=== PATIENT | female | born 1960 | race Caucasian/White ===

== ENCOUNTER → 2016-09-22 | Outpatient (CLI) | payer BC, OTHER ==
--- NOTE | 2016-09-22 16:17 | RADRPT ---
PROCEDURE: XR Pelvis 1 View and Hip 1 Views. CLINICAL INDICATION: Right hip pain TECHNIQUE: AP pelvis and frog lateral view of the right hip were performed. COMPARISON: September 12, 2015 FINDINGS: The osseous structures are intact. No destructive bony lesions are observed. Severe narrowing of t he right hip joint is identified. Sclerosis is noted on both sides of the joint. Mild osteophytosi s is seen along the margins of the right acetabulum and femoral head. Moderate narrowing of the lef t hip joint is seen. Degenerative changes are seen in the lower lumbar spine. Multiple phleboliths are identified in the pelvis. IMPRESSION: Severe osteoarthritis of the right hip. Moderate osteoarthritis of the left hip. Degenerative changes in the lower lumbar spine. Overall appearance is similar to prior exam. If further characterization is needed CT or MRI could be helpful. RPTAT: AA .Raz Mistry MD, MD Date Time Electronically viewed and signed by .Raz Mistry MD, on 09/22/2016 16:17 .P/
--- NOTE | 2016-09-23 06:50 | HKNOTE ---
DATE OF SERVICE: 09/22/2016 MAIN COMPLAINT: Pain in the right hip. HISTORY OF MAIN COMPLAINT: The patient is a 55-year-old female who complains of pain in her right g roin. She has been seeing me for this problem for the last 2 years. The patient is a very active p erson. She has run at least 9 [place] marathons. 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 When she first presented with her right hip pain, she was diagnosed as having advanced degenerative osteoarthritis of the right hip. We were able to nurse her along with an occasional cortisone injec tion into the hip joint. The last injection was given on 09/21/2016. She did not get very much rel ief from that injection. Her pain has become very much worse in the past few weeks, and she would n ow like to proceed with a hip replacement operation. She comes in with her fiance. The patient was taking Advil for the pain. She now takes Aleve which she believes helps a great solomon l. She takes as needed. PRESENT COMPLAINTS: The patient's pain is localized to the right groin and radiates down the anteri or aspect of the right thigh as far as the knee joint. Secondarily, she gets pain in the area of th e both buttocks which radiates down to the ankles. She also gets some numbness and tingling in that same distribution. She does get pain in her lower back. She never had an MRI scan of her lumbar s pine. Her pain is somewhat relieved by massage. She limps some of the time. She does not have a shoe lif t. Her leg lengths feel equal. She can clip her toenails and tie her shoelaces. SPORTING ACTIVITIES: Used to do walking and hiking but can no longer do so. PAST ORTHOPEDIC HISTORY: PREVIOUS ORTHOPEDIC OPERATIONS: In 1983, bunion surgery by doctor at the ____ [facility]. PRIOR CORTISONE INTAKE: As above. ALCOHOL INTAKE: One to two glasses of wine daily with dinner. OTHER JOINT PROBLEMS: The patient states that she "gets pain all over my body from compensating for my right hip." When questioned about this in more detail, it turns out that she gets what seem to be muscle pains rather than joint pains. BLOOD TESTS FOR ARTHRITIS: Recently performed and completely normal. PRIOR INJURIES TO HIPS OR KNEES: None. 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 PAST MEDICAL HISTORY: Essentially negative. The patient had asthma, but that seems to have spontan eously cleared up. ALLERGIES: FLAGYL. MEDICATIONS: 1. Lorazepam 1 to 2 a month for anxiety. 2. Aleve as needed for pain. PREVIOUS MAJOR INJURIES: None. FAMILY HISTORY: The patient is adopted. SYSTEMS REVIEW: Gait disturbance and three pregnancies. Otherwise negative. HABITS: The patient smoked in her 20s and 30s. The patient no longer smokes. She drinks 1 to 2 gl asses of wine a day. PHYSICAL EXAMINATION GENERAL: The patient is a remarkably fit-looking and youthful 55-year-old female. VITAL SIGNS: Height 5 feet 3 inches, weight 147 pounds. GAIT: The patient walks without a walking aid. Her gait is markedly antalgic. She is not using a walking aid. RIGHT HIP: Flexion 100, external rotation 25, internal rotation 0, abduction 30, adduction 0. The patient gets marked pain in the right groin at the limits of motion. No tenderness anywhere around the right hip. LEFT HIP: A full range of motion without pain. LEFT KNEE: LEFT KNEE: The left knee shows normal alignment. Active and passive extension is 0 degr ees. Active and passive flexion is 135 degrees. The medial and lateral collateral ligaments and cruc iate ligaments are intact. Kelsie test is negative. There is no effusion, tenderness, scarring, cre pitus, or cysts. The patella tracks normally. There is no tenderness on the articular surface of the patella or in the patellar groove. The Q angle is normal. RIGHT KNEE: RIGHT KNEE: The right knee shows normal alignment. Active and passive extension is 0 d egrees. Active and passive flexion is 135 degrees. The medial and lateral collateral ligaments and c ruciate ligaments are intact. Kelsie test is negative. There is no effusion, tenderness, scarring, crepitus, or cysts. The patella tracks normally. There is no tenderness on the articular surface of the patella or in the patellar groove. The Q angle is normal. NEUROLOGIC: Motor examination reveals no muscle deficit in the lower extremities. Deep tendon refle xes in the lower extremities: Right knee jerk plus, left knee jerk plus, right ankle jerk plus, lef t ankle jerk plus. Straight leg raising is negative bilaterally at 80 degrees. Lasegue and JUNE lisa ts are negative. IMAGING: Plain x-rays of her pelvis and right hip obtained [facility] were reviewed. These showed almost complete loss of the articular cartilage. Bone quality is go od. Leg lengths appear to be equal. DIAGNOSES: 1. Severe symptomatic degenerative osteoarthritis of the right hip. 2. Resolved asthma. 3. "Nose job." 4. Breast reduction. 5. History of section. MANAGEMENT: The patient comes in today to discuss total hip replacement. She clearly has reached a point at which she would like to proceed with the surgery having tried every possible way to put it off. An extensive amount of time was spent with her and her fiance discussing hip replacement surgery and what is involved in the operation. They were shown actual implants. The patient was given my manual titled "Arthritis of the Hip Joint" which contains information karlee rning the various alternatives of treatment. It includes various forms of conservative treatment, in cluding the use of nonsteroidal anti-inflammatory medications and their dangers. Various surgical al ternatives are discussed. The technique of total hip replacement is discussed in detail, including p ossible complications. Included also is a section on the possible complications of blood transfusion , a section on postoperative precautions, and an exercise program to follow at home after total hip replacement. The long-term care of a total hip replacement implant is also covered in detail. The sol ortiz was instructed to read this manual in its entirety since it is, in and of itself, a form of in formed consent. After reading this manual, the patient will make a list of further questions that ma y not have been covered adequately. The patient was further advised that this manual, although exhau stive in nature, is only intended to supplement and complement a one-on-one discussion with me. The operation of anterior hip replacement was discussed with them in a fair amount of detail. The patient was referred to my website, [facility]. At her request, she was given a prescription for physical therapy to strengthen up her lower extremi ty muscles. The patient is being referred for an MRI scan of her lumbar spine. She will be called with the resu . She has already scheduled surgery with my personnel assistant, Ronaldo. Said surgery will be performed o n 09/29/2016, subject to change if needed. At the patient's request, she was given a prescription to have some toning up exercises for lower ex tremities prior to undergoing surgery. Note that she is going to get a second opinion from Dr. Jorge Goodwin. Dictated By: CASSIE MERRILL/GALE Conf#: [id number] DID#: [id number]
== END | disposition home or self-care (01) ==
LOC: HKI 16:23
DX: M25.551 Pain in right hip (principal); M16.11 Unilateral primary osteoarthritis, right hip
CPT/HCPCS: 73502; G0463

== ENCOUNTER → 2016-10-29 | Outpatient (CLI) | payer BC, OTHER ==
[~2016-10-29] MED LIST: FLEX PO; TRAM-40 PO
--- NOTE | 2016-10-30 06:45 | HKNOTE ---
DATE OF SERVICE: 10/29/2016 evaluation. She is scheduled to have a right total hip replacement on 10/30/2016. She has been cleared for surgery by Dr. Hao Chicas. She has not given blood for transfusion. She understands the risks associated with using hospital blood. She is agreeable to using hospital blood if needed. Numerous questions were asked and answered. Dictated By: CASSIE MERRILL/GALE Conf#: [id number] DID#: [id number]
== END | disposition home or self-care (01) ==
LOC: HKI 13:25
DX: M25.551 Pain in right hip (principal); M16.11 Unilateral primary osteoarthritis, right hip
CPT/HCPCS: G0463

== ENCOUNTER 2016-10-30 05:40 | Inpatient (IN) | payer OTHER ==
[2016-10-29 09:30] VITALS: BMI 25.4
--- NOTE | 2016-10-29 16:05 | PREOPHP ---
DATE OF ADMISSION: 10/30/2016 CHIEF COMPLAINT: Admitted to undergo a right total hip replacement. HISTORY OF PRESENT ILLNESS: Rosi Koo is a 55-year-old woman who has been in excellent health. She has a long-standing history of running. She has run marathons for years, but has been having progressive discomfort as well as osteoarthritis in the right hip. She used to run 40 miles every w sun'aq, she now really has a hard time walking without significant pain. She has been evaluated by Dr. Mcgarry and has elected to proceed with a right total hip replacement. The patient states that she has been in good health, denying any recent illnesses or infections. MEDICATIONS: Tramadol 50 mg, 1 to 2 tablets per day. HABITS: The patient has a 5 pack-year smoking history, but quit smoking 2 1/2 years ago. Alcohol u se is 1 to 2 glasses of wine per day. I have advised her to stop in the week prior to surgery. ALLERGIES: NO KNOWN ALLERGIES TO ANY MEDICATIONS. PAST MEDICAL HISTORY: She underwent a tonsillectomy in 1979, a nose job in 1987, section in 1992, a breast reduction in 1995. She was seen at the [facility] for a panic evangelist ck in 2010, which has not recurred. A recent cardiac workup, including stress echocardiography was negative. A bone density was excellent. SOCIAL HISTORY: The patient is adopted. She was born in [place]. 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 She has been for 15 years, but is in a long-term relationship at this [facility]. She has a 23-year-old son with a history of asthma. REVIEW OF SYSTEMS: HEENT: She has no new trouble with her vision or hearing. No otic discomfort or pharyngitis report ed. PULMONARY: She denies cough, dyspnea, sputum production or ____ pneumonia. She was diagnosed with asthma in her 20s, but the symptoms have not recurred. CARDIOVASCULAR: She denies chest discomfort, exertional angina, heart palpitations or prior history of myocardial infarction. GASTROINTESTINAL: She denies nausea, vomiting, constipation, diarrhea or rectal bleeding. GENITOURINARY: She denies dysuria, polyuria, polydipsia, or nocturia. GYNECOLOGIC: She has occasional spotting between menstrual periods, as well as small fibroids. NEUROLOGIC: She denies a history of stroke or transient ischemic attack. No focal paresthesias __ __ numbness or weakness. ORTHOPEDICS: See history of present illness. PHYSICAL EXAMINATION: GENERAL: The patient is alert, oriented and in no distress. VITAL SIGNS: Height 5 feet 3 inches, weight 147 pounds, blood pressure 120/80, pulse 74, temperatu re ____. HEENT: Head is normocephalic and atraumatic. Eyes: The pupils were equal, round and reactive to l ight and accommodation. The sclerae were nonicteric. The fundi were benign. Extraocular movements were intact. Ears, tympanic membranes were clear bilaterally. Nose: Nares are clear. Throat: The pharynx is benign without oral lesions noted. Neck: The neck is supple. Carotid pulses are 2+ john aterally without bruits. The trachea is in the midline. There is no thyromegaly or lymphadenopathy . CHEST: The lungs are clear to auscultation and percussion. HEART: S1 and S2 had a regular rate and rhythm without murmurs or gallops auscultated. ABDOMEN: Shows good bowel sounds in all 4 quadrants. She had no evidence for hepatosplenomegaly. T here was no tenderness to abdominal palpation and femoral pulses were 2+ bilaterally. EXTREMITIES: Without cyanosis, clubbing or edema. NEUROLOGIC: Cranial nerves were intact. Deep tendon reflexes were physiologic and symmetric. Mot or and sensory were grossly intact. VASCULAR: Peripheral pulses were full and equal. LABORATORY DATA: Hemoglobin and hematocrit were 12.4 and 39.1 respectively. White blood count 5500 , platelet count 390,000. Sodium and potassium 137 and 4.3. She had normal liver and kidney functi on. Urinalysis was clear. INR is 0.9. PTT is 34.1 seconds. EKG was within normal limits. Chest radiograph was clear. ASSESSMENT: Rosi Koo is a 55-year-old woman who is now admitted to undergo a right total hip r eplacement. Based on the patient's history, physical and laboratory data, there is nothing to precl ude the performance of this performance at this time and she is medically cleared to proceed. Please do not hesitate to contact me if you have any questions. Dictated By: CASSIE MERRILL/GALE Conf#: [id number] [facility]#: [id number]
[~2016-10-30] VITALS: Ht 160 cm; Wt 66.7 kg
[2016-10-30] VITALS (17 sets, daily range): BP systolic 92–121; BP diastolic 60–78; PULSE 74–118; RESP 13–19; Ht 160 cm; Wt 66.7 kg
[2016-10-30] MEDS ORDERED: CELECOXIB 200 MG CAP PO ONE (06:00)
[2016-10-30] MEDS ORDERED: LANSOPRAZOLE 30 MG CAP PO ONE (06:00)
[2016-10-30] MEDS ORDERED: LACTATED RINGER'S 1,000 ML IV* SCH (06:00)
[2016-10-30] MEDS: HIP PAIN COCKTAIL VANCO INJ SCH ×14 (06:00→09:21)
[2016-10-30] MEDS ORDERED: VANCOMYCIN 1 GM (PMX) 250 ML IVPB ONE (06:00)
[2016-10-30] MEDS ORDERED: DEXAMETHASONE 4 MG/ML 1 ML INJ IV ONE (06:00)
[2016-10-30] MEDS ORDERED: ACETAMINOPHEN 1000MG/100ML IV 100 ML IVPB ONE (06:00)
[2016-10-30] MEDS ORDERED: oxyCODONE (CR) 10 MG TAB [oxyCONTIN] PO ONE (06:00)
[2016-10-30] MEDS ORDERED: ONDANSETRON 4 MG INJ IV ONE (06:00)
[2016-10-30] MEDS ORDERED: TRANEXAMIC ACID IVPB ONE (06:30)
[2016-10-30] MEDS ORDERED: SOD CHLORIDE 0.9% IVPB ONE (06:30)
[2016-10-30] MEDS ORDERED: TRAM-40 PO (06:35)
[2016-10-30] MEDS ORDERED: FLEX PO (06:35)
--- NOTE | 2016-10-30 06:47 | HPN ---
Date/Time of Note Date/Time of Note DATE: 10/30/16 TIME: 06:46 Interval H&P Admission Note Pt. seen H&P reviewed: No system changes ALKA HANKS PA-C Oct 30, 2016 06:47
[2016-10-30] MEDS ORDERED: HEPARIN 1000 UNITS/ML 10 ML INJ ONE (07:06)
[2016-10-30] MEDS ORDERED: GELATIN SIZE 100 SPONGE ONE (07:06)
[2016-10-30] MEDS ORDERED: POLYMYXIN B 500000 UNIT INJ ONE (07:06)
[2016-10-30] MEDS ORDERED: ROPIVACAINE 0.2% 100 ML ONE (07:06)
[2016-10-30] MEDS ORDERED: VANCOMYCIN 1 GM INJ ONE (07:06)
[2016-10-30] MEDS ORDERED: BACITRACIN 50000 UNITS INJ ONE (07:11)
[2016-10-30] MEDS ORDERED: BUPIVACAINE 0.5%/EPI (SDV) 30 ML INJ ONE (07:39)
[2016-10-30] MEDS ORDERED: TRANEXAMIC ACID 1300 MG IRR SCH ×2 (08:00)
[2016-10-30] MEDS ORDERED: SOD CHLORIDE 0.9% IRR SCH ×2 (08:00)
[2016-10-30] MEDS ORDERED: ROCURONIUM 50 MG INJ ONE ×2 (08:03→10:49)
[2016-10-30] MEDS ORDERED: SUCCINYLCHOLINE CHLORIDE 100 MG/5 ML SYG IV ONE (08:03)
[2016-10-30] MEDS ORDERED: NEOSTIGMINE 3 MG/3 ML SYRINGE ONE (08:03)
[2016-10-30] MEDS ORDERED: PROPOFOL 20 ML ONE (08:03)
[2016-10-30] MEDS ORDERED: GLYCOPYRROLATE 0.4 MG INJ ONE ×2 (08:04→10:47)
[2016-10-30] MEDS ORDERED: LIDOCAINE 2% (SDV) 5 ML INJ ONE (08:04)
[2016-10-30] MEDS ORDERED: ROPIVACAINE 0.2% 100ML BAG INJ ONE (09:21)
[2016-10-30] MEDS ORDERED: METOCLOPRAMIDE 10 MG INJ ONE (10:49)
[2016-10-30] MEDS ORDERED: ONDANSETRON 4 MG INJ ONE (10:49)
[2016-10-30] MEDS: DEXTROSE 5%-LR 1,000 ML IV SCH ×2 (11:36→19:37)
--- NOTE | 2016-10-30 11:45 | PDOCDIS ---
Discharge Instructions DIAGNOSIS Discharge Diagnosis: Status Post right total hip arthroplasty via anterior route CONDITION Patient Condition: Stable HOME CARE INSTRUCTIONS: Diet Instructions: Regular ACTIVITY: Activity Restrictions: Slowly Increase Activity Rest between Activity Avoid heavy lifting No Sexual Activity Do not Drive Do not operate Machinery Do not operate Power Tool Avoid Heavy Housework Keep Limb Elevated (While at rest. Ice modalities encouraged.) Weight Bearing (As tolerated with front wheeled walker. May gradually progress to independent ambulation when confident and feels that hip is stable.) Bathing Restrictions: Shower (Using Tegaderm with pad. Apply prior to shower. Dab dry and remove after shower. Do not leave on throughout the day as this may create potential skin irritation. Repeat steps each day until ashley are removed around 10 days postoperatively.) FOLLOW UP/APPOINTMENTS Appointments Follow-up on 11/19/2016 at 2:15 PM. ALKA HANKS PA-C Oct 30, 2016 11:45
[2016-10-30] MEDS ORDERED: NA PHOSPHATE/BIPHOS 133 ML ENEMA PR PRN (12:00)
[2016-10-30] MEDS: ACETAMINOPHEN 1000MG/100ML IV 100 ML IVPB SCH ×2 (12:00→19:36)
[2016-10-30] MEDS ORDERED: MAGNESIUM HYDROXIDE 30ML CUP PO PRN (12:00)
[2016-10-30] MEDS ORDERED: MEPERIDINE 10 MG/ML 30 ML PCA IV PRN (12:00)
[2016-10-30] MEDS ORDERED: oxyCODONE 5 MG TAB PO PRN (12:00)
[2016-10-30] MEDS ORDERED: NACL 0.9% 3 ML SYG IV SCH (12:00)
[2016-10-30] MEDS ORDERED: BISACODYL 10 MG SUPP PR PRN (12:00)
[2016-10-30] MEDS ORDERED: BETHANECHOL 25 MG TAB PO PRN (12:00)
[2016-10-30] MEDS ORDERED: NALOXONE (0.4 MG/ML) INJ IV PRN (12:00)
[2016-10-30] MEDS ORDERED: DIPHENHYDRAMINE 50 MG INJ IM PRN (12:00)
[2016-10-30] MEDS ORDERED: DOCUSATE SODIUM 100 MG CAP PO ONE ×2 (12:00→12:04)
[2016-10-30] MEDS ORDERED: HYDROmorphONE 0.2 MG/ML PCA IV PRN (12:00)
[2016-10-30] MEDS ORDERED: ASPIRIN (EC) 325 MG TAB PO ONE (12:00)
[2016-10-30] MEDS ORDERED: SENNA/DOCUSATE NA (8.6MG/50MG) TAB PO PRN (12:00)
[2016-10-30] MEDS ORDERED: CEFAZOLIN 1 GM/50 ML (PMX) 50 ML IVPB ONE (12:03)
[2016-10-30] MEDS: CEFAZOLIN 1 GM/50 ML (PMX) 50 ML IVPB SCH ×2 (12:09→20:21)
[2016-10-30] MEDS: ONDANSETRON 4 MG INJ IV SCH ×2 (12:09→17:54)
[2016-10-30] MEDS ORDERED: MIDAZOLAM 1 MG/ML 2 ML INJ IV PRN (13:00)
[2016-10-30] MEDS ORDERED: DIPHENHYDRAMINE 50 MG INJ IV PRN (13:00)
[2016-10-30] MEDS ORDERED: EPHEDrine SULFATE 50 MG/5 ML SYG IV PRN (13:00)
[2016-10-30] MEDS ORDERED: hydrALAzine 20 MG INJ IV PRN (13:00)
[2016-10-30] MEDS ORDERED: ONDANSETRON 4 MG INJ IV PRN (13:00)
[2016-10-30] MEDS ORDERED: LABETALOL HCL 20MG INJ IV PRN (13:00)
[2016-10-30] MEDS ORDERED: HYDROmorphONE (0.2 MG/ML) 10ML SYG IV PRN ×2 (13:00)
[2016-10-30] MEDS ORDERED: METOCLOPRAMIDE 10 MG INJ IV PRN (13:00)
[2016-10-30] MEDS ORDERED: MEPERIDINE 25 MG INJ IV PRN (13:00)
--- NOTE | 2016-10-30 13:13 | RADRPT ---
PROCEDURE: XR hip CLINICAL INDICATION: Postop TECHNIQUE: AP views of the right hip are available for review. COMPARISON: None available FINDINGS: A non cemented right hip hemiarthroplasty is present in near anatomic alignment without acute radiog raphic abnormality. Recent surgical changes seen in the soft tissues. IMPRESSION: 1. Right hip hemiarthroplasty in near anatomic alignment without acute radiographic abnormality RPTAT: EE .Rich Gross MD, MD Date Time Electronically viewed and signed by .Rich Gross MD, MD on 10/30/2016 13:13 .d/
--- NOTE | 2016-10-30 13:14 | RADRPT ---
PROCEDURE: X-ray fluoroscopy guidance CLINICAL INDICATION: Right hip hemiarthroplasty TECHNIQUE: Fluoroscopic guidance was utilized for an intraoperative procedure. COMPARISON: None available FINDINGS: Fluoroscopic guidance was utilized for a noncemented right hip hemiarthroplasty placement. 0.6 octavio lisa of fluoroscopy time was utilized for the procedure. Alignment appears near anatomic. 17 fluoros copic spot images were obtained. IMPRESSION: 1. X-ray fluoroscopic guidance utilized for right hip hemiarthroplasty placement. RPTAT: EE .Rich Gross MD, MD Date Time Electronically viewed and signed by .Rich Gross MD, MD on 10/30/2016 13:14 .d/
[2016-10-30] MEDS ORDERED: BUPIVACAINE 0.25% (MPF) 30 ML INJ INJ ONE (13:55)
[2016-10-30] MEDS ORDERED: TRANEXAMIC ACID 670 MG in SOD CHLORIDE 0.9% 100 ML IVPB ONE ×2 (15:00→18:00)
[2016-10-30] MEDS: oxyCODONE 5 MG TAB PO PRN ×2 (15:29→18:53)
--- NOTE | 2016-10-30 17:03 | OPR ---
DATE OF OPERATION: 10/30/2016 PREOPERATIVE DIAGNOSIS: Severe degenerative osteoarthritis of the right hip. POSTOPERATIVE DIAGNOSIS: Severe degenerative osteoarthritis of the right hip. PROCEDURE: Right total hip replacement. SURGEON: Jesse Mcgarry MD MANAGER CARDIAC CATH: Hammad Verdin ANESTHESIOLOGIST: Yazan Monroy MD FINDINGS AT SURGERY: The patient was found to have exceedingly severe osteoarthritis of the right hip. The femoral head had no normal-appearing articular cartilage. The patient's bone quality was incredibly good for a female of her age. The acetabular bone in particular was very hard, as was the femoral bone. JUSTIFICATION FOR SURGERY: The patient has endstage osteoarthritis of the right hip. There can be no scientific expectation that any further conservative measures would give this patient any relief from her incapacitating pain. DESCRIPTION OF PROCEDURE: The patient was given intravenous antibiotics approximately 1 hour prior to surgery. An epidural anesthetic was initiated in the preanesthesia area. The patient was then moved to the operating room and transferred to a [place] table. General anesthesia was induced with intubation and full muscle paralysis. Plain and digital x-rays were obtained of the pelvis and the operative hip and stored in the computer. Measurements were made on the operative hip to determine the degree of leg length and offset. The intent was to use the operative hip as the basic template for restoring the geometry of the operative hip (i.e., the opposite hip was not used as the template). On the pelvic x-ray, the correct orientation of the pelvis for surgery was determined. Note that the [employer] computer was used throughout for making all leg length and angular measurements. The operative thigh, leg and lower abdomen were prepared and draped in the usual sterile fashion. An oblique incision was made over the lateral aspect of the right thigh. Incision commenced 3 cm distal and 3 cm posterior to the anterior superior iliac spine. The total length of the incision was approximately 100 mm. The incision was deepened through the subcutaneous fat to expose the fascia over the tensor muscle. The fascia was opened to expose the muscle. Bleeding points were cauterized throughout by diathermic coagulation. The fascia over the tensor was incised by blunt and digital resection. The interval was found between the tensor muscle and the anterior capsule as well as the rectus muscle. Superior and inferior cobra retractors were now placed outside the capsule to expose the anterior surface of the capsule. A third cobra retractor was placed over the brim of the pelvis. The reflected head of rectus was first elevated with a Benson elevator. The anterior capsule was incised along the length of the intratrochanteric line with the hip externally rotated. The incision extended around the proximal femur to the lesser trochanter. The incision was now extended vertically to the edge of the acetabulum. The capsular incision was extended along the anteromedial extent of the anterior rim of the acetabulum. A cobra retractor was placed inside the capsule medially. The lateral aspect of the anterior capsule was incised and a second cobra retractor was placed inside the capsule around the superior femoral neck. Three turns of traction were placed on the operative leg. The femoral head was now freed from the acetabulum using a skid. The remaining superior and anterior capsule was incised and the femoral neck was then incised. A corkscrew was inserted into the femoral head from the anterior aspect of the femoral head. Using the corkscrew as a handle and using a skid, the hip was now completely dislocated. The hip was reduced. An osteotomy of the femoral neck was made at the location determined by preoperative templating. The femoral head was now removed. By suitable retraction, the acetabulum was exposed. Soft tissues around the folia removed. The acetabulum was enlarged and deepened to 51 mm. The last acetabular reamers were inserted under fluoroscopic control and the correct orientation of the socket and if the reaming were determined by the [employer] computer and direct x-ray visualization. The acetabular component was now installed with an orientation of 43 degrees of abduction and 24 degrees of anteversion. The [employer] computer was used for making these measurements. The proximal femur was now exposed by hyperextending and adducting the hip joint. A retractor was placed posterior to the femoral neck so as to retract the proximal femur laterally. A hook was then placed around the proximal femur deep to the tensor muscle and as proximal as possible. The hook was attached to the table stacy and the femur was elevated as high as we could go without force being applied to the femur. The superior and proximal femoral capsules were now incised. The cobra retractor was placed behind the posterior rim of the acetabulum. A Steinmann pin was driven into the pelvis superior to the acetabulum to retract the soft tissues. A third cobra was placed over the rim of the acetabulum and the fourth cobra was placed along the medial aspect of the acetabulum. This allowed further mobilization of the proximal femur. A canal finder was used to find the canal. The proximal femur is now broached starting with the smallest broach and progressively increasing until we felt we could go no further. At this point, the size 7 broach was left in place and the hip was reduced. X- rays were taken and these x-rays showed that we could broach up 1 more size. The hip was reduced with the shortest femoral head and neck assembly and measurements were made to determine what neck lengths and offset changes were still needed. The hip was dislocated. The next size broach (size 8) was now installed. This broach was found to be completely stable. The hip was reduced using the -2 mm femoral head and neck assembly and the size 8 broach. Measurements indicated that the leg length was0.5 mm shorter than the opposite hip and the offset was medialized. The intention then was to use a plus 2 neck for the final implant which would increase offset and minimally increase leg length. With these trial components in place the foot was now detached from the [place] table and the hip was put through a full functional range of motion. The hip was found to be completely stable to the limits of motion with a 10-degree lip set anteriorly on the trial socket liner. The Tessie test appeared to be normal. The trial components were removed, the permanent plastic acetabular component was installed. This was followed by installing the permanent femoral component. The table was now returned to a neutral position and the final exays taken using the plus 2mm trial neck. This showed that the leg had been increased more than expected.. The femoral head was exchanged for a minus 2 mm head/neck and repeat measurements showed an increase in length of 3.8 mm and medialized 3mm. This big disparity between the last two measurements were discussed with the computer numerical control grinder. She was dumbfounded as to how the difference had come about.A decision had to be made whether the lengthening was acceptable or to extract the femoral component and shorten the femur. It was felt that since the leg was short properatively by 2 mm that would leave a 1.8 mm lengthening total which should be acceptable, and that removing the femoral component would be difficult at best. The wound was frequently irrigated throughout the procedure with normal saline containing antibiotics using pulsatile lavage. Superficial and deep Hemovac drains were placed. Soft tissues around the hip were injected with a mixture of Naropin, Toradol, morphine and clonidine for pain management. The deep tissues were now closed using interrupted Vicryl. The subcutaneous tissues were closed using a Quill type stitch. The skin was closed using ashley. The usual sterile dressings were applied and an abduction pillow was placed between the patient's legs before transferring her to a gurney. The patient returned to the recovery room in stable condition. There were no other problems throughout this operation as far as is known. Although multiple x- rays were taken in the operating room and saved, the permanent x-ray record was obtained in the recovery room to be sure that the hip did not dislocate in transfer. IMPLANT COMPONENT INFORMATION: Femoral component: 15 size KA . Acetabular component: 52 mm Raymond with Gription. Femoral head size: 36 mm. Femoral neck size: -2 mm. Implant community health advocate: [email or web address] of [place], [place]. Leg length: Increased 3.8 mm as measured by the [employer] computer and offfset medialized 3.0 mm. It was felt (from experience) that decreasing the offset compensates for increased leg length and vice versa. Total blood loss was 200 mL and 125 mL was reinfused. Dictated By: JESSE MERRILL/GALE Conf#: [id number] DID#: [id number]
--- NOTE | 2016-10-30 18:48 | CONS ---
Date/Time of Note Date/Time of Note DATE: 10/30/16 TIME: 18:38 Assessment/Plan Assessment/Plan Problems: (1) Aftercare following right hip joint replacement surgery Status: Acute Comment: Pt. w/o other medical problems, o/w healthy. Doing well, POD#0. Encourage PT. Defer pain management to primary team. Will monitor for any medical issues and treat should they arise. Consultation Date/Type/Reason Admit Date/Time Oct 30, 2016 at 05:40 Date of Consultation: Oct 30, 2016 Type of Consultation: Medicine Reason for Consultation Medical Management Referring Provider: CASSIE COY MD Hx of Present Illness 55 y/o C F w/ a remote PMH of asthma and o/w healthy in [facility] [place] until 14 y. ago when she began to develop B hip and knee pains. Decided to stop running for exercise and substituted w/ walking and hiking. Pain initially improved but subsequently returned and began to worsen over time, occurring more frequently. First saw Dr. Coy 3 years ago and started getting annual cortisone shots in hip. Early this year pain in R groin significantly worsened and pt. became debilitated. Ortho decided to take her for full R CRISTOBAL which pt. had today, POD#0. Constitutional: improved, no complaints Eyes: no complaints ENT: other (laryngitis post-op) Respiratory: no complaints Cardiovascular: no complaints Gastrointestinal: no complaints Genitourinary: no complaints Musculoskeletal: bone/joint pain (R calf) Neurologic: other (numbness R lateral thigh) Past Medical History Medical History: other (asthma) Past Surgical History Past Surgical Hx: other (tonsillectomy in 1979, a nose job in 1987, section in 1992, a breast reduction in 1995) Family History Significant Family History: asthma (son), other (adopted) Social History b. [employer], 2 y. 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 ago, previously social smoker) Drug Use: marijuana (medicinal only) Exam/Review of Systems Vital Signs Vitals VS - Last 72 Hours, by Label Date Time Temp Pulse Resp B/P Pulse Ox O2 Delivery O2 Flow Rate FiO2 10/30/16 15:50 97.9 84 18 104/61 99 Room Air 10/30/16 14:50 97.9 82 18 100/67 99 Room Air 10/30/16 14:20 97.9 92 18 111/69 99 Room Air 10/30/16 13:50 97.9 87 18 106/63 99 Room Air 10/30/16 13:35 97.9 89 18 107/65 97 Room Air 10/30/16 13:20 97.9 83 18 109/69 99 Room Air 10/30/16 13:05 97.9 78 18 112/66 99 Room Air 10/30/16 12:11 74 18 100/67 100 Room Air 10/30/16 12:06 76 19 95/68 99 Room Air 10/30/16 12:01 80 19 99/72 100 Room Air 10/30/16 11:56 86 13 94/65 98 Room Air 10/30/16 11:51 98 15 102/71 99 Room Air 10/30/16 11:46 114 19 104/73 100 Room Air 10/30/16 11:41 118 17 100/69 99 Room Air 10/30/16 11:36 98.5 113 18 92/67 100 Room Air 10/30/16 06:33 98.7 74 18 121/78 100 Room Air Vital Signs Date Time Temp Pulse Resp B/P Pulse Ox O2 Delivery O2 Flow Rate FiO2 10/30/16 15:50 97.9 84 18 104/61 99 Room Air Exam Constitutional: alert, oriented, well developed Psych: nl mood/affect, no complaints Eyes: EOMI, PERRL, nl conjunctiva, nl lids, nl sclera ENMT: mucosa pink and moist, nl external ears & nose Neck: non-tender, supple, No bruits, No masses, No thyromegaly Respiratory: clear to auscultation, normal air movement Cardiovascular: nl pulses, regular rate and rhythm, No edema, No murmurs/extra sounds, No rub Gastrointestinal: bowel sounds, nl liver, spleen, non-tender, soft, No mass, No rebound or guarding Musculoskeletal: nl extremities to inspection Extremities: normal pulses, No clubbing, No cyanosis, No edema Neurological: BAGGAGE AGENT SUPERVISOR II-XII intact, nl mental status, nl speech, nl strength Medications Medications Current Medications Dextrose/Lactated Ringer's (D5-Lr) 1,000 ml @ 80 mls/hr [id number] IV Last administered on 10/30/16 11:36; Admin Dose 80 MLS/HR; Start 10/30/16 at 11:36 Hydromorphone HCl (Dilaudid SLICER MACHINE OPERATOR) Q4PCA PRN IV SEVERE PAIN 8-10; Start 10/30/16 at 12:00; Stop 10/31/16 at 09:00 Meperidine HCl (Demerol SLICER MACHINE OPERATOR) Q4PCA PRN IV SEVERE PAIN 8-10; Start 10/30/16 at 12:00; Stop 10/31/16 at 09:00 Oxycodone HCl (Roxicodone) 20 mg Q3H PRN PO PAIN LEVEL 8-10; Start 10/30/16 at 12:00 Oxycodone HCl 10 mg 10 mg Q3H PRN PO PAIN LEVEL 4-7 Last administered on 15:29; Admin Dose 10 MG; Start 10/30/16 at 12:00 Acetaminophen (Ofirmev 1000mg/ 100ml Iv) 100 ml @ 400 mls/hr Q8H IVPB ; Start 10/30/16 at 12:00; Stop 11/01/16 at 04:14 Zolpidem Tartrate (Ambien) 5 mg HS PRN PO INSOMNIA; Start 10/30/16 at 12:00 Ondansetron HCl 4 mg 4 mg Q6H IV Last administered on 10/30/16 12:09; Admin Dose 4 MG; Start 10/30/16 at 12:00; Stop 10/31/16 at 06:01 Cefazolin Sodium (Ancef 1 Gm/50 ml (Pmx)) 50 ml @ 100 mls/hr Q8H IVPB Last administered on 10/30/16 12:09; Admin Dose 100 MLS/HR; Start 10/30/16 at 12:00; Stop 10/31/16 at 04:29 Aspirin (Ecotrin) 325 mg BID PO ; Start 10/31/16 at 09:00 Celecoxib (Celebrex) 200 mg BID PO ; Start 10/31/16 at 09:00 Dexamethasone (Decadron) 4 mg DAILY@07 IV ; Start 10/31/16 at 07:00; Stop at 06:59 Pantoprazole (Protonix Tab) 40 mg DAILY@06 PO ; Start 10/31/16 at 06:00 Docusate Sodium/ Ferrous Fumarate (Melinda-Sequels) 1 tab BID PO ; Start 10/31/16 at 09:00 Docusate Sodium (Colace) 200 mg BID PO ; Start 10/31/16 at 09:00; Stop 11/02/16 at 21:01 Simethicone (Mylicon) 80 mg TID PRN PO DISTENSION/GAS/BLOATING; Start 10/30/16 at 12:00 Senna/Docusate Sodium (Senokot-S) 2 tab BID PRN PO CONSTIPATION; Start 10/30/16 at 12:00 Magnesium Hydroxide (Milk Of Mag) 30 ml HS PRN PO CONSTIPATION; Start 10/30/16 at 12:00 Bisacodyl (Dulcolax Supp) 10 mg DAILY PRN SC CONSTIPATION; Start 10/30/16 at 12: 00 Sodium Biphosphate/ Sodium Phosphate (Fleet Enema) 133 ml DAILY PRN SC CONSTIPATION; Start 10/30/16 at 12:00 Diphenhydramine HCl (Benadryl) 25 mg Q4H PRN IM ITCHING OR RASH; Start 10/30/16 at 12:00 Ketorolac Tromethamine (Toradol) 15 mg DAILY@06 PRN INJ ADMINSTER BY SURGEON ONLY; Start 10/31/16 at 06:00; Stop 11/04/16 at 05:59 Bupivacaine HCl/ Epinephrine Bitart (Marcaine 0.25%/ Epi (Sdv) 30 ml) 20 ml DAILY@06 PRN INJ ADMINSTER BY SURGEON ONLY; Start 10/31/16 at 06:00; Stop at 05:59 Naloxone HCl (Narcan) 0.2 mg Q2M PRN IV DECREASED REPIRATORY RATE; Start at 12:00 JEM MCCARTNEY MD Oct 30, 2016 18:48
[2016-10-30] MEDS: ZOLPIDEM 5 MG TAB PO PRN (21:56)
[2016-10-31 01:11] VITALS: BP 95/65; PULSE 68; RESP 18
[2016-10-31] MEDS: CEFAZOLIN 1 GM/50 ML (PMX) 50 ML IVPB SCH (03:56)
[2016-10-31] MEDS: ACETAMINOPHEN 1000MG/100ML IV 100 ML IVPB SCH ×2 (04:26→11:53)
[2016-10-31] MEDS ORDERED: BUPIVACAINE 0.25%/EPI (SDV) 30 ML INJ INJ PRN (06:00)
[2016-10-31] MEDS: ONDANSETRON 4 MG INJ IV SCH ×2 (06:00)
[2016-10-31] MEDS ORDERED: KETOROLAC 15 MG INJ INJ PRN (06:00)
[2016-10-31] MEDS: DEXAMETHASONE 4 MG/ML 1 ML INJ IV SCH (06:14)
[2016-10-31] MEDS: PANTOPRAZOLE (EC) 40 MG TAB PO SCH (06:14)
--- NOTE | 2016-10-31 07:25 | PN ---
Date/Time of Note Date/Time of Note DATE: 10/31/16 TIME: 07:22 Assessment/Plan VTE Prophylaxis VTE Prophylaxis Intervention: ambulation, SCD's, other (Aspirin 325 mg twice daily) Lines/Catheters IV Catheter Type (from Nrsg): Peripheral IV Guadalupe in Place (from Nrsg): Yes Assessment/Plan Assessment/Plan -Hemovac Removed Today -Pain Cocktail Given -Pain Meds as needed -Dress change performed today -OOB with PT -ASA/SCDs for DVT Prophylaxis -We will continue to monitor numbness to the anterior thigh. Likely due to retraction while performing surgery as numbness and nerve irritation is common due to increased pressure while performing procedure. Should dissipate over time we will continue to monitor. -We will continue to monitor feeling of abnormal limb length as well. -Continue monitoring with Internal Medicine -Patient Stable Subjective 24 Hr Interval Summary 55-year-old female postop day 1 status post right total hip arthroplasty via anterior route. Patient denies any pain to the hip. Patient does have complaints of numbness to the anterior thigh. Patient has been up and out of bed with physical therapy. She does feel that there is abnormal limb length as the operative side feels like it is "longer" than the other. We will continue to monitor this. No acute events overnight. No chest pain/tightness, calf pain. Patient is doing well and is very pleasant this morning. Pain Control: well controlled Exam/Review of Systems Vital Signs Vitals Vital Signs Date Time Temp Pulse Resp B/P Pulse Ox O2 Delivery O2 Flow Rate FiO2 10/31/16 01:11 98.2 68 18 95/65 97 Nasal Cannula 2.0 Intake and Output 10/30/16 10/30/16 10/31/16 15:00 23:00 07:00 Intake Total 1958 ml 1870 ml 1790 ml Output Total 860 ml 950 ml 1880 ml Balance 1098 ml 920 ml -90 ml Exam Free Text/Dictation -Hemovac: Intact. 200 cc output -Pain Cocktail Drains: Intact -Incision: Clean, Dry and Intact without any redness or drainage -Thigh soft -5/5 Quadriceps, Tibialis Anterior, EHL Gastrocnemius/Soleus and Peroneals -Numbness to the anterior thigh to light touch. -Palpable DP/PT, Capillary Refill <2 secs -No Distal Edema -Negative Arnoldo Sign/No calf pain -Toes Freely Movable Constitutional: alert, oriented, well developed ALKA HANKS PA-C Oct 31, 2016 07:25
[2016-10-31 08:00] VITALS: BP 113/65; RESP 18
[2016-10-31] MEDS: DOCUSATE SODIUM 100 MG CAP PO SCH ×2 (08:14→21:40)
[2016-10-31] MEDS: FERROUS FUMARATE (SR) TAB PO SCH ×2 (08:15→21:40)
[2016-10-31] MEDS: CELECOXIB 200 MG CAP PO SCH ×2 (08:15→21:40)
[2016-10-31] MEDS: oxyCODONE 5 MG TAB PO PRN ×4 (08:16→22:56)
[2016-10-31 08:38] LABS: ADD UMIC YES; URINE BILIRUBIN (Dip) NEGATIVE (NEGATIVE); URINE BLOOD (Dip) 2+ (NEGATIVE); URINE COLOR LT. YELLOW (YELLOW); URINE GLUCOSE (Dip) NEGATIVE (NEGATIVE); URINE KETONES (Dip) NEGATIVE (NEGATIVE); URINE LEUKOCYTE ESTERASE (Dip) NEGATIVE (NEGATIVE); URINE NITRITE (Dip) NEGATIVE (NEGATIVE); URINE TOTAL PROTEIN (Dip) NEGATIVE (NEGATIVE); URINE UROBILINOGEN (Dip) 0.2 E.U./dL (0.1-1.0)
[2016-10-31 08:52] LABS: BACTERIA,URINE FEW
[2016-10-31] MEDS ORDERED: ASPIRIN (EC) 325 MG TAB PO SCH (09:00)
[2016-10-31] MEDS: DEXTROSE 5%-LR 1,000 ML IV SCH ×2 (12:36→22:57)
[2016-10-31] MEDS ORDERED: VANCOMYCIN 1 GM (PMX) 250 ML IVPB SCH (16:00)
--- NOTE | 2016-10-31 16:20 | PN ---
DATE: 10/31/2016 POSTOP DAY #1. The patient complains that her right leg feels too long. The intraoperative events were discussed with her, which led to the leg being slightly long and she was told the options for correcting the problem or living with it. At surgery using the [employer] computer after all the trials had been installed and leg lengths and of fset measured, the process development technician running the [employer] computer informed us that the final leg length wou ld be 0.5 mm shorter than the starting length. The patient had been asked in my office whether or n ot the leg lengths are equal and she indicated that she was unable to tell because of the pain in th e hips and because of her limping. She was advised in the office that it appeared from the x-rays t hat the starting length of the right hip was 2 mm shorter than the opposite side and that we might l engthen the leg by 2 mm from the starting point in surgery, if I thought it was necessary for stabil ity or if the test indicated that the hip was somewhat loose. Accordingly, this gave us a sufficient amount of length to work with using the shortest and second s hortest femoral head-neck assembly in order to equalize the leg lengths. The shortest neck length was therefore selected after installing trials and making the final decisio n. Final x-rays were now taken and the process development technician remeasured and announced that the operative leg was n ow 3.8 mm longer than the starting position. Taking into account that we were prepared to lengthen the leg by 2 mm if necessary, it was felt that the additional 1.8 or approximately 2 mm lengthening would not make much difference to the patient' s function. The center of the hip joint was also noted by Radlink measurements to show that the offset had been medialized by 2 mm. I frequently will lengthen the leg by the same amount as the medialization in o rder to compensate one against the other. On examining her further while she is standing up, it is clear that the right leg is longer than th e left and unacceptable to her. The patient was advised that our options are as follows. 1. I have frequently had patients where there was a slight increase in the length and after a few w eeks or months, there was complete accommodation to that lengthening by an unconscious tilting of th e pelvis. 2. The patients frequently thought that the leg might be too long, even when all measurements indic ated that they were exactly the same in which case that would be an illusion, but that would soon di ssipate. The patient was advised that I do not believe that was the situation in her case. Knowing that we had problems with the final Radlink measurements in surgery, I feel that it is best to go back in and to exchange the femoral component and shorten the leg. The procedure was discussed with her and her son, Tucker, also with her father who is a grounds foreman (on the phone). She was advised that I expect a fairly quick operation, that there should be no downside to the gio l functionality of the hip implant components, and that there is very low likelihood of any complica tions. After discussing together, the patient is agreeable to proceeding with revision of the femoral compo nent. We have scheduled her for approximately 11 a.m. tomorrow (Wednesday). If possible, we will try to get the same anesthesiologist. She had minimal blood loss at surgery (200 mL), so blood is unlikely to be an issue. We will start intravenous vancomycin and continue for 2 days after the surgery as well. Dictated By: CASSIE MERRILL/GALE Conf#: [id number] DID#: [id number]
[2016-10-31] MEDS ORDERED: VANCOMYCIN IV PER PHARMACY XX SCH (16:30)
[2016-10-31] MEDS ORDERED: VANCOMYCIN 1.5 GM in SOD CHLORIDE 0.9% 250 ML IVPB SCH (17:30)
--- NOTE | 2016-10-31 19:04 | CONS ---
Date/Time of Note Date/Time of Note DATE: 10/31/16 TIME: 19:00 Assessment/Plan Assessment/Plan Problems: (1) Aftercare following right hip joint replacement surgery Status: Acute Comment: Clinically stable. PT, pain and surgical related issues per Dr. Coy. Consultation Date/Type/Reason Admit Date/Time Oct 30, 2016 at 05:40 Initial Consult Date 10/30/16 Type of Consultation: Medicine Reason for Consultation medical management of non surgical issues. Referring Provider: CASSIE COY MD 24 HR Interval Summary Free Text/Dictation POD # 1 States "operated leg is 1 inch shorter." Otherwise has no complaints and feels well. Exam/Review of Systems Vital Signs Vitals Vital Signs Date Time Temp Pulse Resp B/P Pulse Ox O2 Delivery O2 Flow Rate FiO2 10/31/16 08:00 97.7 74 18 113/65 96 10/31/16 01:11 Nasal Cannula 2.0 Intake and Output 10/30/16 10/30/16 10/31/16 15:00 23:00 07:00 Intake Total 1958 ml 1870 ml 1790 ml Output Total 860 ml 950 ml 1880 ml Balance 1098 ml 920 ml -90 ml Exam Constitutional: alert, oriented, well developed Neck: supple Respiratory: clear to auscultation Cardiovascular: regular rate and rhythm Extremities: normal pulses Results Results 24 hrs Laboratory Tests Test 10/31/16 04:30 Urine Color LT. YELLOW Urine Clarity CLEAR Urine pH 6.0 Urine Specific [place] 1.010 Urine Ketones NEGATIVE Urine Nitrite NEGATIVE Urine Bilirubin NEGATIVE Urine Urobilinogen 0.2 E.U./dL Urine Leukocyte Esterase NEGATIVE Urine Microscopic RBC 5-10 Urine Microscopic WBC 10-25 Urine Epithelial Cells FEW Urine Bacteria FEW Urine Hemoglobin 2+ H Urine Glucose NEGATIVE Urine Total Protein NEGATIVE Medications Medications Current Medications Dextrose/Lactated Ringer's (D5-Lr) 1,000 ml @ 80 mls/hr [id number] IV Last administered on 10/30/16t 19:37; Admin Dose 80 MLS/HR; Start 10/30/16 at 11:36 Oxycodone HCl (Roxicodone) 20 mg Q3H PRN PO PAIN LEVEL 8-10; Start 10/30/16 at 12:00 Oxycodone HCl (Roxicodone) 10 mg Q3H PRN PO PAIN LEVEL 4-7 Last administered on 10/31/16 17:05; Admin Dose 10 MG; Start 10/30/16 at 12:00 Zolpidem Tartrate (Ambien) 5 mg HS PRN PO INSOMNIA Last administered on 21:56; Admin Dose 5 MG; Start 10/30/16 at 12:00 Celecoxib (Celebrex) 200 mg BID PO Last administered on 10/31/16 08:15; Admin Dose 200 MG; Start 10/31/16 at 09:00 Dexamethasone (Decadron) 4 mg DAILY@07 IV Last administered on 10/31/16 06:14; Admin Dose 4 MG; Start 10/31/16 at 07:00; Stop 11/03/16 at 06:59 Pantoprazole (Protonix Tab) 40 mg DAILY@06 PO Last administered on 10/31/16 06: 14; Admin Dose 40 MG; Start 10/31/16 at 06:00 Docusate Sodium/ Ferrous Fumarate (Melinda-Sequels) 1 tab BID PO Last administered on 10/31/16 08:15; Admin Dose 1 TAB; Start 10/31/16 at 09:00 Docusate Sodium (Colace) 200 mg BID PO Last administered on 10/31/16 08:14; Admin Dose 200 MG; Start 10/31/16 at 09:00; Stop 11/02/16 at 21:01 Simethicone (Mylicon) 80 mg TID PRN PO DISTENSION/GAS/BLOATING; Start 10/30/16 at 12:00 Senna/Docusate Sodium (Senokot-S) 2 tab BID PRN PO CONSTIPATION; Start 10/30/16 at 12:00 Magnesium Hydroxide (Milk Of Mag) 30 ml HS PRN PO CONSTIPATION; Start 10/30/16 at 12:00 Bisacodyl (Dulcolax Supp) 10 mg DAILY PRN SD CONSTIPATION; Start 10/30/16 at 12: 00 Sodium Biphosphate/ Sodium Phosphate (Fleet Enema) 133 ml DAILY PRN SD CONSTIPATION; Start 10/30/16 at 12:00 Diphenhydramine HCl (Benadryl) 25 mg Q4H PRN IM ITCHING OR RASH; Start 10/30/16 at 12:00 Ketorolac Tromethamine (Toradol) 15 mg DAILY@06 PRN INJ ADMINSTER BY SURGEON ONLY; Start 10/31/16 at 06:00; Stop 11/04/16 at 05:59 Bupivacaine HCl/ Epinephrine Bitart (Marcaine 0.25%/ Epi (Sdv) 30 ml) 20 ml DAILY@06 PRN INJ ADMINSTER BY SURGEON ONLY; Start 10/31/16 at 06:00; Stop at 05:59 Naloxone HCl (Narcan) 0.2 mg Q2M PRN IV DECREASED REPIRATORY RATE; Start at 12:00 Ondansetron HCl 4 mg 4 mg ONCE IV ; Start 11/01/16 at 10:00; Stop 11/01/16 at 23: 00 Vancomycin HCl 1.5 gm/Sodium Chloride 250 ml @ 83.333 mls/ hr NOW IVPB Last administered on 10/31/16t 17:27; Admin Dose 83.333 MLS/HR; Start 10/31/16 at 17:30 ; Stop 10/31/16 at 20:29 Vancomycin HCl (Vancocin) 250 ml @ 125 mls/hr Q12H IVPB ; Start 11/01/16 at 05: 00 SONU QUIJANO MD Oct 31, 2016 19:04
[2016-10-31 21:27] VITALS: BP 123/76; RESP 20
[2016-10-31] MEDS: ZOLPIDEM 5 MG TAB PO PRN (21:41)
[2016-11-01] VITALS (24 sets, daily range): BP systolic 105–134; BP diastolic 65–79; PULSE 90–130; RESP 9–28
[2016-11-01] MEDS: oxyCODONE 5 MG TAB PO PRN ×2 (03:17→08:25)
[2016-11-01] MEDS: VANCOMYCIN 1 GM in NS 250 ML IVPB SCH ×2 (04:44→17:36)
[2016-11-01] MEDS ORDERED: VANCOMYCIN 500MG/NS (PMX) 100 ML IVPB SCH (05:00)
[2016-11-01] MEDS: PANTOPRAZOLE (EC) 40 MG TAB PO SCH (06:00)
[2016-11-01] MEDS: DEXAMETHASONE 4 MG/ML 1 ML INJ IV SCH (06:06)
[2016-11-01] MEDS ORDERED: POLYMYXIN B 500000 UNIT INJ ONE (06:12)
[2016-11-01] MEDS ORDERED: ROPIVACAINE 0.2% 0 ML ONE (06:12)
[2016-11-01] MEDS ORDERED: VANCOMYCIN 1 GM INJ ONE ×2 (06:12→12:27)
[2016-11-01] MEDS ORDERED: POLYMYXIN/BACITRACIN 1L IRRIG ONE (06:17)
[2016-11-01] MEDS ORDERED: GELATIN SIZE 100 SPONGE ONE (06:17)
[2016-11-01] MEDS ORDERED: CEFTRIAXONE 1 GM INJ IM STA (07:43)
[2016-11-01] MEDS ORDERED: LIDOCAINE 1% (MDV) 20 ML INJ ONE (08:47)
[2016-11-01 08:50] LABS: ADD SCAN DIFF NO
[2016-11-01] MEDS: CELECOXIB 200 MG CAP PO SCH (09:00)
[2016-11-01] MEDS ORDERED: LORAZEPAM 2 MG INJ IV ONE (09:00)
[2016-11-01] MEDS ORDERED: morphine 4 MG/ML VIAL IV STA (09:00)
[2016-11-01] MEDS: FERROUS FUMARATE (SR) TAB PO SCH (09:00)
[2016-11-01] MEDS: DOCUSATE SODIUM 100 MG CAP PO SCH (09:00)
[2016-11-01] MEDS ORDERED: LIDOCAINE 1% (MDV) 20 ML INJ IM ONE (09:00)
[2016-11-01 09:02] LABS: BASOPHILS % 0.4 % (0.0-2.0); EOSINOPHILS # 0.1 10^3/ul (0.0-0.5); HEMATOCRIT 30.7 % (37.0-47.0); HEMOGLOBIN 9.8 g/dl (12.0-16.0); LYMPHOCYTES # 2.2 10^3/ul (0.8-2.9); LYMPHOCYTES % 31.7 % (15.0-51.0); MEAN CORPUSCULAR HEMOGLOBIN 30.8 pg (29.0-33.0); MEAN CORPUSCULAR HGB CONC 31.9 g/dl (32.0-37.0); MEAN CORPUSCULAR VOLUME 96.5 fl (82.0-101.0); MEAN PLATELET VOLUME 9.1 fl (7.4-10.4); MONOCYTE # 0.7 10^3/ul (0.3-0.9); MONOCYTES % 10.2 % (0.0-11.0); NEUTROPHILS % 56.4 % (39.0-77.0); PLATELET COUNT 343 10^3/UL (140-415); RED BLOOD COUNT 3.18 10^6/ul (4.20-5.40); RED CELL DISTRIBUTION WIDTH 12.2 % (11.5-14.5); WHITE BLOOD COUNT 7.1 10^3/ul (4.8-10.8)
[2016-11-01 09:22] LABS: ALBUMIN 3.9 g/dl (3.3-4.9); ALBUMIN/GLOBULIN RATIO 1.77; BILIRUBIN,INDIRECT 0.4 mg/dl (0-1.1); BILIRUBIN,TOTAL 0.4 mg/dl (0.2-1.3); CALCIUM 8.5 mg/dl (8.4-10.2); CREATININE 0.58 mg/dl (0.44-1.00); POTASSIUM 3.6 mmol/L (3.5-5.1); TOTAL PROTEIN 6.1 g/dl (6.1-8.1)
[2016-11-01 09:45] LABS: INR 0.91; PROTIME 12.2 Sec (12.2-14.2)
[2016-11-01] MEDS: ONDANSETRON 4 MG INJ IV SCH ×4 (10:00→21:06)
[2016-11-01] MEDS ORDERED: BUPIVACAINE 0.5%/EPI (SDV) 30 ML INJ ONE (11:00)
[2016-11-01] MEDS ORDERED: MIDAZOLAM 1 MG/ML 2 ML INJ ONE (11:05)
[2016-11-01] MEDS ORDERED: SUCCINYLCHOLINE CHLORIDE 100 MG/5 ML SYG IV ONE (11:36)
[2016-11-01] MEDS ORDERED: LIDOCAINE 2% (SDV) 5 ML INJ ONE (11:36)
[2016-11-01] MEDS ORDERED: ROCURONIUM 50 MG INJ ONE (11:36)
[2016-11-01] MEDS ORDERED: GLYCOPYRROLATE 0.4 MG INJ ONE ×2 (11:36→12:46)
[2016-11-01] MEDS ORDERED: PROPOFOL 20 ML ONE (11:36)
[2016-11-01] MEDS ORDERED: NEOSTIGMINE 3 MG/3 ML SYRINGE ONE (11:36)
[2016-11-01] MEDS ORDERED: TRANEXAMIC ACID 1,000 MG in SOD CHLORIDE 0.9% 100 ML IV ONE ×6 (12:00)
[2016-11-01] MEDS ORDERED: CEFAZOLIN 1 GM INJ ONE (12:10)
[2016-11-01] MEDS ORDERED: TOBRAMYCIN 1.2 GM POWDER ONE (12:27)
[2016-11-01] MEDS: SOD CHLORIDE 0.9% IRR SCH ×4 (12:30→13:07)
[2016-11-01] MEDS ORDERED: SOD CHLORIDE 0.9% IVPB ONE (12:30)
[2016-11-01] MEDS ORDERED: TRANEXAMIC ACID IVPB ONE (12:30)
[2016-11-01] MEDS ORDERED: LACTATED RINGER'S 1,000 ML IV* SCH (12:30)
[2016-11-01] MEDS ORDERED: DEXAMETHASONE 4 MG/ML 1 ML INJ IV ONE (12:30)
[2016-11-01] MEDS ORDERED: oxyCODONE (CR) 10 MG TAB [oxyCONTIN] PO ONE (12:30)
[2016-11-01] MEDS ORDERED: ONDANSETRON 4 MG INJ IV ONE (12:30)
[2016-11-01] MEDS ORDERED: CELECOXIB 200 MG CAP PO ONE (12:30)
[2016-11-01] MEDS ORDERED: LANSOPRAZOLE 30 MG CAP PO ONE (12:30)
[2016-11-01] MEDS: TRANEXAMIC ACID 1300 MG IRR SCH ×4 (12:30→13:07)
[2016-11-01] MEDS ORDERED: ACETAMINOPHEN 1000MG/100ML IV 100 ML IVPB ONE (12:30)
[2016-11-01] MEDS ORDERED: FENTAnyl 50 MCG/ML VIAL ONE (12:53)
--- NOTE | 2016-11-01 13:01 | CONS ---
Date/Time of Note Date/Time of Note DATE: 11/01/16 TIME: 13:00 Assessment/Plan Assessment/Plan Problems: (1) Aftercare following right hip joint replacement surgery Status: Acute Comment: Currently undergoing revision of hip replacement Consultation Date/Type/Reason Admit Date/Time Oct 30, 2016 at 05:40 Initial Consult Date 10/30/16 Type of Consultation: Medicine Referring Provider: CASSIE COY MD 24 HR Interval Summary Free Text/Dictation Patient off floor. Taken to OR for revision hip. Exam/Review of Systems Vital Signs Vitals Vital Signs Date Time Temp Pulse Resp B/P Pulse Ox O2 Delivery O2 Flow Rate FiO2 11/01/16 08:19 98.2 78 18 133/72 97 10/31/16 01:11 Nasal Cannula 2.0 Intake and Output 10/31/16 10/31/16 11/01/16 14:59 22:59 06:59 Intake Total 260 ml 1150 ml 1050 ml Output Total 1200 ml 1400 ml Balance 260 ml -50 ml -350 ml Exam Pateitn off floor in OR Results Result Diagram: 11/01/16 0830 11/01/16 0830 Results 24 hrs Laboratory Tests Test 11/01/16 08:30 White Blood Count 7.1 Red Blood Count 3.18 L Hemoglobin 9.8 L Hematocrit 30.7 L Mean Corpuscular Volume 96.5 Mean Corpuscular Hemoglobin 30.8 Mean Corpuscular Hemoglobin Concent 31.9 L Red Cell Distribution Width 12.2 Platelet Count 343 Mean Platelet Volume 9.1 Neutrophils % 56.4 Lymphocytes % 31.7 Monocytes % 10.2 Eosinophils % 1.0 Basophils % 0.4 Nucleated Red Blood Cells % 0.0 Neutrophils # 4.0 Lymphocytes # 2.2 Monocytes # 0.7 Eosinophils # 0.1 Basophils # 0.0 Nucleated Red Blood Cells # 0.0 Prothrombin Time 12.2 Prothrombin Time Ratio 1.0 INR International Normalized Ratio 0.91 Sodium Level 140 Potassium Level 3.6 Chloride Level 108 Carbon Dioxide Level 27 Anion Gap 9 Blood Urea Nitrogen 7 Creatinine 0.58 Glucose Level 93 Calcium Level 8.5 Total Bilirubin 0.4 Direct Bilirubin 0.00 Indirect Bilirubin 0.4 Aspartate Amino Transf (AST/SGOT) 46 Alanine Aminotransferase (ALT/SGPT) 33 Alkaline Phosphatase 56 Total Protein 6.1 Albumin 3.9 Globulin 2.20 Albumin/Globulin Ratio 1.77 Medications Medications Current Medications Dextrose/Lactated Ringer's (D5-Lr) 1,000 ml @ 80 mls/hr [id number] IV Last administered on 10/31/16 22:57; Admin Dose 80 MLS/HR; Start 10/30/16 at 11:36 Oxycodone HCl (Roxicodone) 20 mg Q3H PRN PO PAIN LEVEL 8-10; Start 10/30/16 at 12:00 Oxycodone HCl (Roxicodone) 10 mg Q3H PRN PO PAIN LEVEL 4-7 Last administered on 11/01/16 08:25; Admin Dose 10 MG; Start 10/30/16 at 12:00 Zolpidem Tartrate (Ambien) 5 mg HS PRN PO INSOMNIA Last administered on 21:41; Admin Dose 5 MG; Start 10/30/16 at 12:00 Celecoxib (Celebrex) 200 mg BID PO Last administered on 10/31/16 21:40; Admin Dose 200 MG; Start 10/31/16 at 09:00 Dexamethasone (Decadron) 4 mg DAILY@07 IV Last administered on 10/31/16 06:14; Admin Dose 4 MG; Start 10/31/16 at 07:00; Stop 11/03/16 at 06:59 Pantoprazole (Protonix Tab) 40 mg DAILY@06 PO Last administered on 10/31/16 06: 14; Admin Dose 40 MG; Start 10/31/16 at 06:00 Docusate Sodium/ Ferrous Fumarate (Melinda-Sequels) 1 tab BID PO Last administered on 10/31/16 21:40; Admin Dose 1 TAB; Start 10/31/16 at 09:00 Docusate Sodium (Colace) 200 mg BID PO Last administered on 10/31/16 21:40; Admin Dose 200 MG; Start 10/31/16 at 09:00; Stop 11/02/16 at 21:01 Simethicone (Mylicon) 80 mg TID PRN PO DISTENSION/GAS/BLOATING; Start 10/30/16 at 12:00 Senna/Docusate Sodium (Senokot-S) 2 tab BID PRN PO CONSTIPATION; Start 10/30/16 at 12:00 Magnesium Hydroxide (Milk Of Mag) 30 ml HS PRN PO CONSTIPATION; Start 10/30/16 at 12:00 Bisacodyl (Dulcolax Supp) 10 mg DAILY PRN [place] CONSTIPATION; Start 10/30/16 at 12: 00 Sodium Biphosphate/ Sodium Phosphate (Fleet Enema) 133 ml DAILY PRN ND CONSTIPATION; Start 10/30/16 at 12:00 Diphenhydramine HCl (Benadryl) 25 mg Q4H PRN IM ITCHING OR RASH; Start 10/30/16 at 12:00 Ketorolac Tromethamine (Toradol) 15 mg DAILY@06 PRN INJ ADMINSTER BY SURGEON ONLY; Start 10/31/16 at 06:00; Stop 11/04/16 at 05:59 Bupivacaine HCl/ Epinephrine Bitart (Marcaine 0.25%/ Epi (Sdv) 30 ml) 20 ml DAILY@06 PRN INJ ADMINSTER BY SURGEON ONLY; Start 10/31/16 at 06:00; Stop at 05:59 Naloxone HCl (Narcan) 0.2 mg Q2M PRN IV DECREASED REPIRATORY RATE; Start at 12:00 Ondansetron HCl 4 mg 4 mg ONCE IV ; Start 11/01/16 at 10:00; Stop 11/01/16 at 23: 00 Vancomycin HCl 250 ml @ 125 mls/hr Q12H IVPB Last administered on 11/01/16t 04: 44; Admin Dose 125 MLS/HR; Start 11/01/16 at 05:00 Lactated Ringer's 1,000 ml @ 125 mls/hr Q8H IV* ; Start 11/01/16 at 12:30; Stop 11/01/16 at 20:29 Tranexamic Acid/ Sodium Chloride 113 ml @ 220 mls/hr PRE-OP ONCE IVPB ; Start 11/01/16 at 12:30; Stop 11/01/16 at 13:00 Sodium Chloride/ Tranexamic Acid (NS/Tranexamic Acid) INTRA-OP IRR ; Start 11/01 at 12:30 SONU QUIJANO MD Nov 01, 2016 13:01
[2016-11-01] MEDS ORDERED: BACITRACIN 50000 UNITS INJ INJ ONE (13:07)
[2016-11-01] MEDS ORDERED: MEPERIDINE 25 MG INJ IV PRN (14:00)
[2016-11-01] MEDS ORDERED: EPHEDrine SULFATE 50 MG/5 ML SYG IV PRN (14:00)
[2016-11-01] MEDS ORDERED: DIPHENHYDRAMINE 50 MG INJ IV PRN (14:00)
[2016-11-01] MEDS ORDERED: hydrALAzine 20 MG INJ IV PRN (14:00)
[2016-11-01] MEDS ORDERED: FENTAnyl 50 MCG/ML VIAL IV PRN ×2 (14:00)
[2016-11-01] MEDS ORDERED: LABETALOL HCL 20MG INJ IV PRN (14:00)
[2016-11-01] MEDS ORDERED: METOCLOPRAMIDE 10 MG INJ IV PRN (14:00)
[2016-11-01] MEDS ORDERED: HYDROmorphONE (0.2 MG/ML) 10ML SYG IV PRN ×3 (14:00→16:30)
[2016-11-01] MEDS ORDERED: morphine (1 MG/ML) 10ML SYRINGE IV PRN ×2 (14:00)
[2016-11-01] MEDS ORDERED: MIDAZOLAM 1 MG/ML 2 ML INJ IV PRN (14:00)
[2016-11-01] MEDS ORDERED: ONDANSETRON 4 MG INJ IV PRN (14:00)
[2016-11-01] MEDS ORDERED: GELATIN COMPRESSED 100CM SPONGE TOP ONE (15:15)
[2016-11-01] MEDS ORDERED: BUPIVACAINE 0.25%/EPI (SDV) 30 ML INJ ONE (15:18)
--- NOTE | 2016-11-01 15:35 | RADRPT ---
PROCEDURE: Fluoroscopy CLINICAL INDICATION: Revision of right hip arthroplasty. TECHNIQUE: 58.6 seconds fluoroscopic time utilized by Dr. COY for procedure. 2 spot images/sequences of are submitted. COMPARISON: None FINDINGS: Revision of right hip arthroplasty is demonstrated. IMPRESSION: Fluoroscopy utilized by Dr. COY for revision of right hip arthroplasty. Please see procedural report for complete details. RPTAT: QQ .Celso Olmos MD, Date Time Electronically viewed and signed by .Celso Olmos MD, on 11/01/2016 15:35 .L/
[2016-11-01] MEDS ORDERED: NA PHOSPHATE/BIPHOS 133 ML ENEMA PR PRN (16:00)
[2016-11-01] MEDS ORDERED: HYDROmorphONE 0.2 MG/ML PCA IV PRN (16:00)
[2016-11-01] MEDS ORDERED: DOCUSATE SODIUM 100 MG CAP PO ONE (16:00)
[2016-11-01] MEDS ORDERED: DIPHENHYDRAMINE 50 MG INJ IM PRN (16:00)
[2016-11-01] MEDS ORDERED: NACL 0.9% 3 ML SYG IV SCH (16:00)
[2016-11-01] MEDS ORDERED: CEFAZOLIN 1 GM/50 ML (PMX) 50 ML IVPB SCH (16:00)
[2016-11-01] MEDS ORDERED: SENNA/DOCUSATE NA (8.6MG/50MG) TAB PO PRN (16:00)
[2016-11-01] MEDS ORDERED: MEPERIDINE 10 MG/ML 30 ML PCA IV PRN (16:00)
[2016-11-01] MEDS ORDERED: NALOXONE (0.4 MG/ML) INJ IV PRN (16:00)
[2016-11-01] MEDS ORDERED: oxyCODONE 5 MG TAB PO PRN ×2 (16:00)
[2016-11-01] MEDS ORDERED: ASPIRIN (EC) 325 MG TAB PO ONE (16:00)
[2016-11-01] MEDS ORDERED: ZOLPIDEM 5 MG TAB PO PRN (16:00)
[2016-11-01] MEDS ORDERED: BETHANECHOL 25 MG TAB PO PRN (16:00)
[2016-11-01] MEDS: ACETAMINOPHEN 1000MG/100ML IV 100 ML IVPB SCH (16:01)
--- NOTE | 2016-11-01 16:11 | RADRPT ---
PROCEDURE: Right hip series CLINICAL INDICATION: Right hip arthroplasty revision TECHNIQUE: Single AP view of the right hip is submitted COMPARISON: 10/30/2016 FINDINGS: There has been recent right hip arthroplasty revision with anatomic alignment. No evidence of fract ures or dislocation.. Postsurgical changes with skin ashley, drainage catheters and soft tissue gas are present. Visualized portions of the pelvis are intact. Surgically placed high-density material seen around the neck of the femoral prosthesis. IMPRESSION: Recent right hip arthroplasty revision. RPTAT: QQ .Celso Olmos MD, MD Date Time Electronically viewed and signed by .Celso Olmos MD, MD on 11/01/2016 16:11 .L/
[2016-11-01] MEDS: DEXTROSE 5%-LR 1,000 ML IV SCH (17:36)
[2016-11-01] MEDS ORDERED: TRANEXAMIC ACID 670 MG in SOD CHLORIDE 0.9% 100 ML IVPB ONE ×2 (19:00→22:00)
--- NOTE | 2016-11-01 19:22 | OPR ---
DATE OF OPERATION: 11/01/2016 SURGEON: Jesse Mcgarry M.D. CSW: Hammad Foss PA-C ANESTHESIOLOGIST: Dr. Monroy. PREOPERATIVE DIAGNOSIS: Right leg too long after a right hip replacement. POSTOPERATIVE DIAGNOSIS: Right leg too long after a right hip replacement. OPERATION PERFORMED: Revision of right total hip replacement components to equalize the leg lengths. FINDINGS AT SURGERY: Before the patient had been anesthetized, repeat x-rays were obtained to measure the exact difference in leg length. It was found that the right leg was 4.1 mm longer than the left leg. This was even longer than had been predicted from the computer measurements at the end of the last operation. At surgery the femoral components were found to be very securely attached to the bone. The acetabular component was installed with ____ screws at the last operation. When the time came to install the final acetabular liner, the acetabulum was again stress tested to see if it was securely attached to the bone. I suspected that there was perhaps some micromotion present, and there it was my intention then to insert at least 1 screw to further stabilize the socket. Unfortunately, the 3 holes for the Sector type acetabular shell were in the wrong place (overlying the danger triangle,) and I could not to install screws through that site. The component was therefore removed and the acetabulum was reamed 1 mm larger and a 56 mm multihole acetabulum shell was now installed. Four supplemental screws were inserted superiorly and posteriorly. Screw fixation was excellent. DESCRIPTION OF PROCEDURE: Under epidural plus general anesthetic, the patient was placed on a [place] table. The right leg and thigh, and lower abdomen were prepared and draped in the usual sterile fashion. The ashley were removed and the right thigh was scrubbed with sterile Betadine brushes. The right leg, thigh, and lower abdomen were now prepared and draped in the usual sterile fashion. Once we were ready for surgery, the wound was again scrubbed with a Betadine brush and Betadine reapplied. The sutures were now removed using a scalpel following the planes of the previous surgery. As we went along we irrigated copiously with pulsatile lavage with triple antibiotic. The planes were very readily and easily established. An Devaughn retractor was now set in place. The hip was dislocated. Attention was placed on the femoral component. It was found to be very securely attached to the bone. The femoral head was removed and multiple attempts were now made to remove the femoral head with a variety of instruments. We were able to reextract the femoral component with considerable difficulty using an extractor provided by the Liquid. A smaller broach was now installed and reaming was progressively carried out until we could install the size 8 broach once again at a lower level. The calcar was planed and the hip was reduced using the -2 mm femoral head and neck assembly and the leg was still too long. Further broaching was carried out sequentially until we achieved the appropriate length. Note that multiple x-ray images were taken and the [employer] computer was used to compute leg length and offset with each stem. Once the appropriate length had been ascertained in order to restore the leg length and offset, the hip was dislocated. The fixation of the acetabulum was now tested using a punch and there was some suspicion that there might be micromotion at the acetabulum. The acetabular liner was removed, and indeed there was some micromotion and as noted above, fixation screws were required. Also, as noted above, the component was removed and a multilevel socket installed with multiple screw fixation. The hip was again reduced using the trial components with using the trial -2 mm femoral head neck assembly. The foot was taken off the [place] table and the hip was put through a full functional range of motion. The hip was found to be completely stable to the limits of motion. The shuck test felt appropriate. The permanent acetabular liner and permanent femoral head were now installed. The hip was reduced. The wound was frequently irrigated with triple antibiotic saline using pulsatile lavage. Superficial and deep Hemovac drains were placed. Antibiotic beads were placed. The wound was now closed using interrupted Vicryl in all the deep tissues and ashley on the skin. The usual sterile dressings were applied. The patient's condition at procedure was satisfactory. There were no complications as far as is known. Dictated By: JESSE MERRILL/GALE Conf#: [id number] DID#: [id number] MTDD
[2016-11-02] MEDS: ACETAMINOPHEN 1000MG/100ML IV 100 ML IVPB SCH ×3 (00:12→16:11)
[2016-11-02 00:27] VITALS: BP 106/68; RESP 18
[2016-11-02] MEDS: DEXTROSE 5%-LR 1,000 ML IV SCH ×2 (04:01→08:27)
[2016-11-02] MEDS: ONDANSETRON 4 MG INJ IV SCH ×2 (04:17→09:33)
[2016-11-02] MEDS: VANCOMYCIN 1 GM in NS 250 ML IVPB SCH ×2 (04:20→16:44)
[2016-11-02 05:33] LABS: ADD SCAN DIFF NO; BASOPHILS % 0.3 % (0.0-2.0); EOSINOPHILS # 0.1 10^3/ul (0.0-0.5); EOSINOPHILS % 0.8 % (0.0-7.0); HEMATOCRIT 26.7 % (37.0-47.0); HEMOGLOBIN 8.5 g/dl (12.0-16.0); LYMPHOCYTES # 1.5 10^3/ul (0.8-2.9); LYMPHOCYTES % 22.6 % (15.0-51.0); MEAN CORPUSCULAR HEMOGLOBIN 30.9 pg (29.0-33.0); MEAN CORPUSCULAR HGB CONC 31.8 g/dl (32.0-37.0); MEAN CORPUSCULAR VOLUME 97.1 fl (82.0-101.0); MEAN PLATELET VOLUME 9.2 fl (7.4-10.4); MONOCYTE # 0.6 10^3/ul (0.3-0.9); MONOCYTES % 9.8 % (0.0-11.0); NEUTROPHIL # 4.3 10^3/ul (1.6-7.5); NEUTROPHILS % 66.3 % (39.0-77.0); PLATELET COUNT 326 10^3/UL (140-415); RED BLOOD COUNT 2.75 10^6/ul (4.20-5.40); RED CELL DISTRIBUTION WIDTH 12.2 % (11.5-14.5); WHITE BLOOD COUNT 6.4 10^3/ul (4.8-10.8)
[2016-11-02] MEDS ORDERED: BUPIVACAINE 0.25%/EPI (SDV) 30 ML INJ INJ PRN (06:00)
[2016-11-02] MEDS ORDERED: KETOROLAC 15 MG INJ INJ PRN (06:00)
[2016-11-02 06:21] LABS: ADD UMIC YES; URINE BILIRUBIN (Dip) NEGATIVE (NEGATIVE); URINE BLOOD (Dip) 1+ (NEGATIVE); URINE COLOR LT. YELLOW (YELLOW); URINE GLUCOSE (Dip) NEGATIVE (NEGATIVE); URINE KETONES (Dip) NEGATIVE (NEGATIVE); URINE LEUKOCYTE ESTERASE (Dip) NEGATIVE (NEGATIVE); URINE NITRITE (Dip) NEGATIVE (NEGATIVE); URINE TOTAL PROTEIN (Dip) NEGATIVE (NEGATIVE); URINE UROBILINOGEN (Dip) 0.2 E.U./dL (0.1-1.0)
[2016-11-02] MEDS: PANTOPRAZOLE (EC) 40 MG TAB PO SCH (06:43)
[2016-11-02] MEDS: DEXAMETHASONE 4 MG/ML 1 ML INJ IV SCH (06:44)
[2016-11-02 07:38] VITALS: BP 120/79; RESP 18
--- NOTE | 2016-11-02 08:26 | PN ---
Date/Time of Note Date/Time of Note DATE: 11/02/16 TIME: 08:21 Assessment/Plan VTE Prophylaxis VTE Prophylaxis Intervention: ambulation, SCD's, other (Aspirin 325 mg twice daily) Lines/Catheters IV Catheter Type (from Nrs): Peripheral IV Guadalupe in Place (from Nrs): Yes Assessment/Plan Assessment/Plan -Hemovac Removed Today. 200 cc output -Pain Cocktail Given -Pain Meds as needed -Dress change performed today -OOB with PT -ASA/SCDs for DVT Prophylaxis -Continue monitoring with Internal Medicine -Patient Stable All questions and concerns answered today. Patient is concerned that she has an elevated temperature. Explained that there is no fever, low-grade fever at best as vitals today show 99.3. Discussed directly with patient's nurse and patient's nurse will be giving Tylenol soon. Also recommend more frequent vitals to monitor to ensure that temperature is downtrending back to normal value. Subjective 24 Hr Interval Summary 55-year-old female postop day 1 status post right total hip arthroplasty revision with replacement of components to correct abnormal limb length. Original CRISTOBAL was performed on 10/30/2016. Patient was experiencing abnormal limb length and revision performed yesterday. Patient has been doing well status post surgery. Has complaints of numbness to the anterior thigh. Has not yet been out of bed with physical therapy. Toes are freely movable. Denies any chest pain or tightness. No calf pain. No complications with wound. Pain Control: well controlled Exam/Review of Systems Vital Signs Vitals Vital Signs Date Time Temp Pulse Resp B/P Pulse Ox O2 Delivery O2 Flow Rate FiO2 11/02/16 07:38 99.3 100 18 120/79 96 11/01/16 20:08 Nasal Cannula 1.0 Intake and Output 11/01/16 11/01/16 11/02/16 15:00 23:00 07:00 Intake Total 250 ml 2476.7 ml 1396.7 ml Output Total 1050 ml 1500 ml Balance 250 ml 1426.7 ml -103.3 ml Exam Free Text/Dictation -Hemovac: Intact. 200 cc output. -Pain Cocktail Drains: Intact -Incision: Clean, Dry and Intact without any redness or drainage -Thigh soft -5/5 Quadriceps, Tibialis Anterior, EHL Gastrocnemius/Soleus and Peroneals -Normal Sensation -Palpable DP/PT, Capillary Refill <2 secs -No Distal Edema -Negative Arnoldo Sign/No calf pain -Toes Freely Movable Constitutional: alert, oriented, well developed Results Result Diagram: 11/02/16 0442 11/01/16 0830 ALKA HANKS PA-C Nov 02, 2016 08:26
[2016-11-02] MEDS: ASPIRIN (EC) 325 MG TAB PO SCH ×2 (08:29→21:19)
[2016-11-02] MEDS: CELECOXIB 200 MG CAP PO SCH ×2 (08:29→21:19)
[2016-11-02] MEDS: DOCUSATE SODIUM 100 MG CAP PO SCH ×2 (08:29→21:19)
[2016-11-02] MEDS: FERROUS FUMARATE (SR) TAB PO SCH ×2 (08:29→21:20)
--- NOTE | 2016-11-02 08:30 | PN ---
Date/Time of Note Date/Time of Note SURGICAL DAILY PROGRESS NOTE FOR DATE: 11/01/16 TIME: 08:26 Assessment/Plan VTE Prophylaxis VTE Prophylaxis Intervention: ambulation, SCD's, other (Aspirin 325 mg) Lines/Catheters IV Catheter Type (from Nrsg): Peripheral IV Guadalupe in Place (from Nrsg): Yes Assessment/Plan Assessment/Plan * Revision surgery in regards to total hip arthroplasty revision with replacement components for correction of abnormal limb length will be performed later today. * All questions and concerns discussed with patient. * Patient has spoken directly to Dr. Mcgarry will also be speaking with anesthesiologist, Dr. Monroy. Subjective 24 Hr Interval Summary (This is the surgical daily progress note for 11/01/2016) 55-year-old female postop day 2 status post right total hip arthroplasty via anterior route. Patient has abnormal limb length. Very emotional as she is concerned regarding abnormal gait due to lengthened lower extremity on the operative side. Patient is currently undergoing preoperative preparation and will be having revision surgery later today. No pain to the hip at this time. Exam/Review of Systems Vital Signs Vitals Vital Signs Date Time Temp Pulse Resp B/P Pulse Ox O2 Delivery O2 Flow Rate FiO2 11/02/16 07:38 99.3 100 18 120/79 96 11/01/16 20:08 Nasal Cannula 1.0 Intake and Output 11/01/16 11/01/16 11/02/16 15:00 23:00 07:00 Intake Total 250 ml 2476.7 ml 1396.7 ml Output Total 1050 ml 1500 ml Balance 250 ml 1426.7 ml -103.3 ml Exam Free Text/Dictation -Hemovac: Removed -Pain Cocktail Drains: Intact -Incision: Clean, Dry and Intact without any redness or drainage -Thigh soft -5/5 Quadriceps, Tibialis Anterior, EHL Gastrocnemius/Soleus and Peroneals -Normal Sensation -Palpable DP/PT, Capillary Refill <2 secs -No Distal Edema -Negative Arnoldo Sign/No calf pain -Toes Freely Movable Constitutional: alert, oriented, well developed Results Result Diagram: 11/02/16 0442 11/01/16 0830 ALKA HANKS PA-C Nov 02, 2016 08:30
[2016-11-02] MEDS: oxyCODONE 5 MG TAB PO PRN ×2 (13:27→16:44)
--- NOTE | 2016-11-02 14:02 | CONS ---
Date/Time of Note Date/Time of Note DATE: 11/02/16 TIME: 13:58 Assessment/Plan Assessment/Plan Problems: (1) Aftercare following right hip joint replacement surgery Status: Acute Comment: Unfortunate pt. had to have repeat surgery. Now POD#3 from original surgery and POD#1 from revision. Doing well from medical standpoint. Pt. already resumed PT. Will monitor for any issues. Consultation Date/Type/Reason Admit Date/Time Oct 30, 2016 at 05:40 Initial Consult Date 10/30/16 Type of Consultation: Medicine Reason for Consultation Medical Management Referring Provider: CASSIE COY MD 24 HR Interval Summary Constitutional: No no complaints (unhappy b/c required repeat surgery due to misplacement of original prosthesis.) Detailed Summary Respiratory: no complaints Cardiovascular: no complaints Gastrointestinal: no complaints Genitourinary: no complaints Musculoskeletal: bone/joint pain (mild in R hip) Neurologic: no complaints Exam/Review of Systems Vital Signs Vitals VS - Last 72 Hours, by Label Date Time Temp Pulse Resp B/P Pulse Ox O2 Delivery O2 Flow Rate FiO2 11/02/16 09:00 98.4 11/02/16 09:00 18 11/02/16 08:00 18 11/02/16 07:38 99.3 100 18 120/79 96 11/02/16 06:40 18 11/02/16 01:00 18 11/02/16 00:27 98.9 86 18 106/68 94 11/01/16 20:08 Nasal Cannula 1.0 11/01/16 20:08 20 11/01/16 19:57 98.7 88 19 105/68 95 11/01/16 18:45 98.9 97 20 120/65 95 Nasal Cannula 2.0 11/01/16 18:15 98.9 102 20 116/70 96 Nasal Cannula 2.0 11/01/16 18:00 98.8 93 20 114/76 94 Nasal Cannula 2.0 11/01/16 17:45 98.9 97 20 120/67 96 Nasal Cannula 2.0 11/01/16 17:39 18 11/01/16 17:30 98.9 98 20 116/68 96 Nasal Cannula 2.0 11/01/16 16:47 90 11 105/74 100 Nasal Cannula 2.0 11/01/16 16:42 98 14 118/69 100 Nasal Cannula 2.0 11/01/16 16:37 92 11 115/67 100 Nasal Cannula 2.0 11/01/16 16:32 98 15 114/72 100 Nasal Cannula 2.0 11/01/16 16:27 98 21 122/73 100 Nasal Cannula 2.0 11/01/16 16:22 96 10 116/72 100 Nasal Cannula 2.0 11/01/16 16:17 98 10 118/77 100 Nasal Cannula 2.0 11/01/16 16:12 100 9 107/67 100 Nasal Cannula 2.0 11/01/16 16:07 100 15 120/67 100 Nasal Cannula 2.0 11/01/16 16:02 106 20 118/72 100 Nasal Cannula 2.0 11/01/16 15:57 110 20 109/75 100 Nasal Cannula 2.0 11/01/16 15:56 112 20 100 Nasal Cannula 2.0 11/01/16 15:52 118 18 114/68 100 Nasal Cannula 2.0 11/01/16 15:47 130 20 126/78 100 Nasal Cannula 2.0 11/01/16 15:42 128 28 119/79 99 Nasal Cannula 2.0 11/01/16 15:41 128 21 126/79 98 Nasal Cannula 2.0 11/01/16 15:38 98.0 129 113/69 100 Nasal Cannula 11/01/16 08:19 98.2 78 18 133/72 97 10/31/16 21:27 98.0 71 20 123/76 95 10/31/16 08:00 97.7 74 18 113/65 96 10/31/16 01:11 98.2 68 18 95/65 97 Nasal Cannula 2.0 10/30/16 20:16 97.8 78 18 100/60 97 Room Air 10/30/16 15:50 97.9 84 18 104/61 99 Room Air 10/30/16 14:50 97.9 82 18 100/67 99 Room Air 10/30/16 14:20 97.9 92 18 111/69 99 Room Air Vital Signs Date Time Temp Pulse Resp B/P Pulse Ox O2 Delivery O2 Flow Rate FiO2 11/02/16 09:00 98.4 11/02/16 09:00 18 11/02/16 07:38 100 120/79 96 11/01/16 20:08 Nasal Cannula 1.0 Intake and Output 11/01/16 11/01/16 11/02/16 15:00 23:00 07:00 Intake Total 250 ml 2476.7 ml 1396.7 ml Output Total 1050 ml 1500 ml Balance 250 ml 1426.7 ml -103.3 ml Exam Constitutional: alert, oriented, well developed Psych: nl mood/affect, no complaints Respiratory: clear to auscultation, normal air movement Cardiovascular: nl pulses, regular rate and rhythm, No edema, No murmurs/extra sounds, No rub Gastrointestinal: bowel sounds, nl liver, spleen, non-tender, soft, No mass, No rebound or guarding Musculoskeletal: nl extremities to inspection Extremities: normal pulses, No clubbing, No cyanosis, No edema Neurological: OPERATING ROOM REGISTERED NURSE II-XII intact, nl mental status, nl speech, nl strength Results Result Diagram: 11/02/16 0442 11/01/16 0830 Results 24 hrs Laboratory Tests Test 11/02/16 03:47 11/02/16 04:42 Urine Color LT. YELLOW Urine Clarity CLEAR Urine pH 6.0 Urine Specific [place] <=1.005 L Urine Ketones NEGATIVE Urine Nitrite NEGATIVE Urine Bilirubin NEGATIVE Urine Urobilinogen 0.2 E.U./dL Urine Leukocyte Esterase NEGATIVE Urine Microscopic RBC 2-5 Urine Microscopic WBC 0-2 Urine Hemoglobin 1+ H Urine Glucose NEGATIVE Urine Total Protein NEGATIVE White Blood Count 6.4 Red Blood Count 2.75 L Hemoglobin 8.5 L Hematocrit 26.7 L Mean Corpuscular Volume 97.1 Mean Corpuscular Hemoglobin 30.9 Mean Corpuscular Hemoglobin Concent 31.8 L Red Cell Distribution Width 12.2 Platelet Count 326 Mean Platelet Volume 9.2 Neutrophils % 66.3 Lymphocytes % 22.6 Monocytes % 9.8 Eosinophils % 0.8 Basophils % 0.3 Nucleated Red Blood Cells % 0.0 Neutrophils # 4.3 Lymphocytes # 1.5 Monocytes # 0.6 Eosinophils # 0.1 Basophils # 0.0 Nucleated Red Blood Cells # 0.0 Medications Medications Current Medications Vancomycin HCl 250 ml @ 125 mls/hr Q12H IVPB Last administered on 11/02/16t 04: 20; Admin Dose 125 MLS/HR; Start 11/01/16 at 05:00 Dextrose/Lactated Ringer's (D5-Lr) 1,000 ml @ 80 mls/hr [id number] IV Last administered on 11/02/16 08:27; Admin Dose 80 MLS/HR; Start 11/01/16 at 15:31 Hydromorphone HCl (Dilaudid PROFESSOR OF JOURNALISM) Q4PCA PRN IV SEVERE PAIN 8-10 Last administered on 11/01/16 16:03; Admin Dose 0.2 MG; Start 11/01/16 at 16:00; Stop 11/02/16 at 15:59 Meperidine HCl (Demerol PROFESSOR OF JOURNALISM) Q4PCA PRN IV SEVERE PAIN 8-10; Start 11/01/16 at 16:00; Stop 11/02/16 at 15:59 Oxycodone HCl (Roxicodone) 20 mg Q3H PRN PO PAIN LEVEL 8-10; Start 11/01/16 at 16:00 Oxycodone HCl (Roxicodone) 10 mg Q3H PRN PO PAIN LEVEL 4-7 Last administered on 11/02/16 13:27; Admin Dose 10 MG; Start 11/01/16 at 16:00 Oxycodone HCl 5 mg 5 mg Q3H PRN PO PAIN LEVEL 1-3; Start 11/01/16 at 16:00 Acetaminophen (Ofirmev 1000mg/ 100ml Iv) 100 ml @ 400 mls/hr Q8H IVPB Last administered on 11/02/16 08:27; Admin Dose 400 MLS/HR; Start 11/01/16 at 16:00; Stop 11/03/16 at 08:14 Zolpidem Tartrate (Ambien) 5 mg HS PRN PO INSOMNIA; Start 11/01/16 at 16:00 Aspirin (Ecotrin) 325 mg BID PO Last administered on 11/02/16 08:29; Admin Dose 325 MG; Start 11/02/16 at 09:00 Celecoxib (Celebrex) 200 mg BID PO Last administered on 11/02/16 08:29; Admin Dose 200 MG; Start 11/02/16 at 09:00 Dexamethasone (Decadron) 4 mg DAILY@07 IV Last administered on 11/02/16 06:44; Admin Dose 4 MG; Start 11/02/16 at 07:00; Stop 11/05/16 at 06:59 Pantoprazole (Protonix Tab) 40 mg DAILY@06 PO Last administered on 11/02/16 06: 43; Admin Dose 40 MG; Start 11/02/16 at 06:00 Docusate Sodium/ Ferrous Fumarate (Melinda-Sequels) 1 tab BID PO Last administered on 11/02/16 08:29; Admin Dose 1 TAB; Start 11/02/16 at 09:00 Docusate Sodium (Colace) 200 mg BID PO Last administered on 11/02/16 08:29; Admin Dose 200 MG; Start 11/02/16 at 09:00; Stop 11/04/16 at 21:01 Simethicone (Mylicon) 80 mg TID PRN PO DISTENSION/GAS/BLOATING; Start 11/01/16 at 16:00 Senna/Docusate Sodium (Senokot-S) 2 tab BID PRN PO CONSTIPATION; Start 11/01/16 at 16:00 Magnesium Hydroxide (Milk Of Mag) 30 ml HS PRN PO CONSTIPATION; Start 11/01/16 at 16:00 Bisacodyl (Dulcolax Supp) 10 mg DAILY PRN [place] CONSTIPATION; Start 11/01/16 at 16: 00 Sodium Biphosphate/ Sodium Phosphate (Fleet Enema) 133 ml DAILY PRN [place] CONSTIPATION; Start 11/01/16 at 16:00 Diphenhydramine HCl (Benadryl) 25 mg Q4H PRN IM ITCHING OR RASH; Start 11/01/16 at 16:00 Ketorolac Tromethamine (Toradol) 15 mg DAILY@06 PRN INJ ADMINSTER BY SURGEON ONLY; Start 11/02/16 at 06:00; Stop 11/06/16 at 05:59 Bupivacaine HCl/ Epinephrine Bitart (Marcaine 0.25%/ Epi (Sdv) 30 ml) 20 ml DAILY@06 PRN INJ ADMINSTER BY SURGEON ONLY; Start 11/02/16 at 06:00; Stop at 05:59 Naloxone HCl (Narcan) 0.2 mg Q2M PRN IV DECREASED REPIRATORY RATE; Start at 16:00 JEM MCCARTNEY MD Nov 02, 2016 14:02
[2016-11-02] MEDS ORDERED: HYDROmorphONE 0.2 MG/ML PCA IV SCH (18:30)
[2016-11-02 19:38] VITALS: BP 124/73; RESP 18
[2016-11-02] MEDS: MAGNESIUM HYDROXIDE 30ML CUP PO PRN (21:19)
[2016-11-03] MEDS: ACETAMINOPHEN 1000MG/100ML IV 100 ML IVPB SCH ×2 (00:14→08:30)
[2016-11-03] MEDS: VANCOMYCIN 1 GM in NS 250 ML IVPB SCH ×2 (04:45→17:23)
[2016-11-03] MEDS: DEXTROSE 5%-LR 1,000 ML IV SCH ×2 (04:46→17:23)
[2016-11-03 05:44] LABS: ADD SCAN DIFF NO
[2016-11-03 05:53] LABS: BASOPHILS % 0.3 % (0.0-2.0); EOSINOPHILS # 0.1 10^3/ul (0.0-0.5); EOSINOPHILS % 1.3 % (0.0-7.0); HEMATOCRIT 25.5 % (37.0-47.0); LYMPHOCYTES # 1.8 10^3/ul (0.8-2.9); LYMPHOCYTES % 25.8 % (15.0-51.0); MEAN CORPUSCULAR HEMOGLOBIN 30.4 pg (29.0-33.0); MEAN CORPUSCULAR HGB CONC 31.4 g/dl (32.0-37.0); MEAN PLATELET VOLUME 9.4 fl (7.4-10.4); MONOCYTE # 0.8 10^3/ul (0.3-0.9); MONOCYTES % 11.2 % (0.0-11.0); NEUTROPHIL # 4.1 10^3/ul (1.6-7.5); NEUTROPHILS % 61.1 % (39.0-77.0); PLATELET COUNT 330 10^3/UL (140-415); RED BLOOD COUNT 2.63 10^6/ul (4.20-5.40); WHITE BLOOD COUNT 6.8 10^3/ul (4.8-10.8)
[2016-11-03] MEDS: BISACODYL 10 MG SUPP PR PRN (06:15)
[2016-11-03] MEDS: PANTOPRAZOLE (EC) 40 MG TAB PO SCH (06:15)
[2016-11-03] MEDS: DEXAMETHASONE 4 MG/ML 1 ML INJ IV SCH (06:15)
[2016-11-03 06:25] LABS: CREATININE 0.52 mg/dl (0.44-1.00)
--- NOTE | 2016-11-03 08:15 | PN ---
Date/Time of Note Date/Time of Note DATE: 11/03/16 TIME: 08:13 Assessment/Plan VTE Prophylaxis VTE Prophylaxis Intervention: ambulation, SCD's, other (Aspirin 325 mg twice daily) Lines/Catheters IV Catheter Type (from Nrsg): Peripheral IV Guadalupe in Place (from Nrsg): No Assessment/Plan Assessment/Plan -Hemovac Removed Today -Pain Cocktail Given -Pain Meds as needed -Dress change performed today -OOB with PT -ASA/SCDs for DVT Prophylaxis -Continue monitoring with Internal Medicine. Will defer to internal medicine to determine if unit of packed red blood cells is necessary due to low red blood cell count and hemoglobin. She is asymptomatic at this time and transfusion may not be necessary. Will defer to internal medicine. Nurse aware. -Patient Stable. Likely DC home tomorrow. Subjective 24 Hr Interval Summary 55-year-old female postop day for right total hip arthroplasty via anterior route and postop day 2 revision of right anterior total hip replacement. Denies any pain complaints. Patient has been up and out of bed with physical therapy. She does mention today that also there has been improvement in abnormal limb length she does feel that the operative site is still "a bit longer" than the left lower extremity. Denies any shortness of breath, chest pain or tightness. Denies any dizziness. Pain Control: well controlled Exam/Review of Systems Vital Signs Vitals Vital Signs Date Time Temp Pulse Resp B/P Pulse Ox O2 Delivery O2 Flow Rate FiO2 11/03/16 06:35 18 11/02/16 19:38 98.0 89 124/73 96 11/01/16 20:08 Nasal Cannula 1.0 Intake and Output 11/02/16 11/02/16 11/03/16 15:00 23:00 07:00 Intake Total 720 ml 3070 ml 1230 ml Output Total 1500 ml Balance 720 ml 1570 ml 1230 ml Exam Free Text/Dictation -Hemovac: Removed -Pain Cocktail Drains: Intact -Incision: Clean, Dry and Intact without any redness or drainage -Thigh soft -4/5 Quadriceps, Tibialis Anterior, EHL Gastrocnemius/Soleus and Peroneals -Normal Sensation -Palpable DP/PT, Capillary Refill <2 secs -No Distal Edema -Negative Arnoldo Sign/No calf pain -Toes Freely Movable Constitutional: alert, oriented, well developed Results Result Diagram: 11/03/16 0447 11/03/16 0447 ALKA HANKS PA-C Nov 03, 2016 08:15
[2016-11-03] MEDS: FERROUS FUMARATE (SR) TAB PO SCH ×2 (08:30→20:12)
[2016-11-03] MEDS: ASPIRIN (EC) 325 MG TAB PO SCH ×2 (08:31→20:12)
[2016-11-03] MEDS: DOCUSATE SODIUM 100 MG CAP PO SCH ×2 (08:31→20:12)
[2016-11-03] MEDS: CELECOXIB 200 MG CAP PO SCH ×2 (08:31→20:12)
[2016-11-03 09:01] VITALS: BP 119/71; RESP 18
[2016-11-03] MEDS ORDERED: GABAPENTIN 100 MG CAP PO STA (19:10)
[2016-11-03 19:58] VITALS: BP 115/74; RESP 18
[2016-11-03] MEDS: MAGNESIUM HYDROXIDE 30ML CUP PO PRN (20:13)
--- NOTE | 2016-11-03 21:53 | CONS ---
Date/Time of Note Date/Time of Note DATE: 11/03/16 TIME: 21:47 Assessment/Plan Assessment/Plan Problems: (1) Aftercare following right hip joint replacement surgery Status: Acute Comment: Doing well POD#4/2. Reports reduction in perceived leg length discrepancy although still apparent. Feels minimal pain. Wants ongoing PT. Anemia after 2 surgeries expected but Hgb not low enough to justify blood transfusion. Rec. ongoing Fe. Pt. likely ready for d/c tomorrow vs. next day depending on feelings of primary team. Consultation Date/Type/Reason Admit Date/Time Oct 30, 2016 at 05:40 Initial Consult Date 10/30/16 Type of Consultation: Medicine Reason for Consultation Medical management Referring Provider: CASSIE COY MD 24 HR Interval Summary Constitutional: improved, no complaints Detailed Summary Respiratory: no complaints Cardiovascular: no complaints Gastrointestinal: no complaints Genitourinary: no complaints Musculoskeletal: bone/joint pain Skin: bruising, erythema, laceration, no complaints, other, pruritis, rash, skin lesions Neurologic: no complaints Exam/Review of Systems Vital Signs Vitals VS - Last 72 Hours, by Label Date Time Temp Pulse Resp B/P Pulse Ox O2 Delivery O2 Flow Rate FiO2 11/03/16 20:08 17 11/03/16 17:00 16 11/03/16 13:00 18 11/03/16 09:01 97.5 89 18 119/71 99 11/03/16 09:00 16 11/03/16 06:35 18 11/03/16 00:23 18 11/02/16 21:00 17 11/02/16 19:38 98.0 89 18 124/73 96 11/02/16 09:00 98.4 11/02/16 09:00 18 11/02/16 08:00 18 11/02/16 07:38 99.3 100 18 120/79 96 11/02/16 06:40 18 11/02/16 01:00 18 11/02/16 00:27 98.9 86 18 106/68 94 11/01/16 20:08 Nasal Cannula 1.0 11/01/16 20:08 20 11/01/16 19:57 98.7 88 19 105/68 95 11/01/16 18:45 98.9 97 20 120/65 95 Nasal Cannula 2.0 11/01/16 18:15 98.9 102 20 116/70 96 Nasal Cannula 2.0 11/01/16 18:00 98.8 93 20 114/76 94 Nasal Cannula 2.0 11/01/16 17:45 98.9 97 20 120/67 96 Nasal Cannula 2.0 11/01/16 17:39 18 11/01/16 17:30 98.9 98 20 116/68 96 Nasal Cannula 2.0 11/01/16 16:47 90 11 105/74 100 Nasal Cannula 2.0 11/01/16 16:42 98 14 118/69 100 Nasal Cannula 2.0 11/01/16 16:37 92 11 115/67 100 Nasal Cannula 2.0 11/01/16 16:32 98 15 114/72 100 Nasal Cannula 2.0 11/01/16 16:27 98 21 122/73 100 Nasal Cannula 2.0 11/01/16 16:22 96 10 116/72 100 Nasal Cannula 2.0 11/01/16 16:17 98 10 118/77 100 Nasal Cannula 2.0 11/01/16 16:12 100 9 107/67 100 Nasal Cannula 2.0 11/01/16 16:07 100 15 120/67 100 Nasal Cannula 2.0 11/01/16 16:02 106 20 118/72 100 Nasal Cannula 2.0 11/01/16 15:57 110 20 109/75 100 Nasal Cannula 2.0 11/01/16 15:56 112 20 100 Nasal Cannula 2.0 11/01/16 15:52 118 18 114/68 100 Nasal Cannula 2.0 11/01/16 15:47 130 20 126/78 100 Nasal Cannula 2.0 11/01/16 15:42 128 28 119/79 99 Nasal Cannula 2.0 11/01/16 15:41 128 21 126/79 98 Nasal Cannula 2.0 11/01/16 15:38 98.0 129 113/69 100 Nasal Cannula 11/01/16 08:19 98.2 78 18 133/72 97 Vital Signs Date Time Temp Pulse Resp B/P Pulse Ox O2 Delivery O2 Flow Rate FiO2 11/03/16 20:08 17 11/03/16 09:01 97.5 89 119/71 99 11/01/16 20:08 Nasal Cannula 1.0 Intake and Output 11/02/16 11/02/1617 15:00 23:00 07:00 Intake Total 720 ml 3070 ml 1230 ml Output Total 1500 ml Balance 720 ml 1570 ml 1230 ml Exam Constitutional: alert, oriented, well developed Psych: nl mood/affect, no complaints Respiratory: clear to auscultation, normal air movement Cardiovascular: nl pulses, regular rate and rhythm, No edema, No murmurs/extra sounds, No rub Gastrointestinal: bowel sounds, nl liver, spleen, non-tender, soft, No mass, No rebound or guarding Musculoskeletal: nl extremities to inspection Extremities: normal pulses, No clubbing, No cyanosis, No edema Neurological: RADIATION ONCOLOGY NURSE II-XII intact, nl mental status, nl speech, nl strength Results Result Diagram: 11/03/1644611/03/16446 Results 24 hrs Laboratory Tests Test 11/03/16 04:47 White Blood Count 6.8 Red Blood Count 2.63 L Hemoglobin 8.0 L Hematocrit 25.5 L Mean Corpuscular Volume 97.0 Mean Corpuscular Hemoglobin 30.4 Mean Corpuscular Hemoglobin Concent 31.4 L Red Cell Distribution Width 12.0 Platelet Count 330 Mean Platelet Volume 9.4 Neutrophils % 61.1 Lymphocytes % 25.8 Monocytes % 11.2 H Eosinophils % 1.3 Basophils % 0.3 Nucleated Red Blood Cells % 0.0 Neutrophils # 4.1 Lymphocytes # 1.8 Monocytes # 0.8 Eosinophils # 0.1 Basophils # 0.0 Nucleated Red Blood Cells # 0.0 Blood Urea Nitrogen 4 L Creatinine 0.52 Medications Medications Current Medications Vancomycin HCl 250 ml @ 125 mls/hr Q12H IVPB Last administered on 11/03/16 17: 23; Admin Dose 125 MLS/HR; Start 11/01/16 at 05:00 Dextrose/Lactated Ringer's (D5-Lr) 1,000 ml @ 80 mls/hr [id number] IV Last administered on 11/03/16 17:23; Admin Dose 80 MLS/HR; Start 11/01/16 at 15:31 Oxycodone HCl (Roxicodone) 20 mg Q3H PRN PO PAIN LEVEL 8-10; Start 11/01/16 at 16:00 Oxycodone HCl (Roxicodone) 10 mg Q3H PRN PO PAIN LEVEL 4-7 Last administered on 11/02/16 16:44; Admin Dose 10 MG; Start 11/01/16 at 16:00 Oxycodone HCl (Roxicodone) 5 mg Q3H PRN PO PAIN LEVEL 1-3; Start 11/01/16 at 16: 00 Zolpidem Tartrate (Ambien) 5 mg HS PRN PO INSOMNIA; Start 11/01/16 at 16:00 Aspirin (Ecotrin) 325 mg BID PO Last administered on 11/03/16 20:12; Admin Dose 325 MG; Start 11/02/16 at 09:00 Celecoxib (Celebrex) 200 mg BID PO Last administered on 11/03/16 20:12; Admin Dose 200 MG; Start 11/02/16 at 09:00 Dexamethasone (Decadron) 4 mg DAILY@07 IV Last administered on 11/03/16 06:15; Admin Dose 4 MG; Start 11/02/16 at 07:00; Stop 11/05/16 at 06:59 Pantoprazole (Protonix Tab) 40 mg DAILY@06 PO Last administered on 11/03/16 06: 15; Admin Dose 40 MG; Start 11/02/16 at 06:00 Docusate Sodium/ Ferrous Fumarate (Mleinda-Sequels) 1 tab BID PO Last administered on 11/03/16 20:12; Admin Dose 1 TAB; Start 11/02/16 at 09:00 Docusate Sodium (Colace) 200 mg BID PO Last administered on 11/03/16 20:12; Admin Dose 200 MG; Start 11/02/16 at 09:00; Stop 11/04/16 at 21:01 Simethicone (Mylicon) 80 mg TID PRN PO DISTENSION/GAS/BLOATING; Start 11/01/16 at 16:00 Senna/Docusate Sodium (Senokot-S) 2 tab BID PRN PO CONSTIPATION; Start 11/01/16 at 16:00 Magnesium Hydroxide (Milk Of Mag) 30 ml HS PRN PO CONSTIPATION Last administered on 11/03/16 20:13; Admin Dose 30 ML; Start 11/01/16 at 16:00 Bisacodyl (Dulcolax Supp) 10 mg DAILY PRN [place] CONSTIPATION Last administered on 11/03/16 06:15; Admin Dose 10 MG; Start 11/01/16 at 16:00 Sodium Biphosphate/ Sodium Phosphate (Fleet Enema) 133 ml DAILY PRN [place] CONSTIPATION; Start 11/01/16 at 16:00 Diphenhydramine HCl (Benadryl) 25 mg Q4H PRN IM ITCHING OR RASH; Start 11/01/16 at 16:00 Ketorolac Tromethamine (Toradol) 15 mg DAILY@06 PRN INJ ADMINSTER BY SURGEON ONLY; Start 11/02/16 at 06:00; Stop 11/06/16 at 05:59 Bupivacaine HCl/ Epinephrine Bitart (Marcaine 0.25%/ Epi (Sdv) 30 ml) 20 ml DAILY@06 PRN INJ ADMINSTER BY SURGEON ONLY; Start 11/02/16 at 06:00; Stop at 05:59 Naloxone HCl (Narcan) 0.2 mg Q2M PRN IV DECREASED REPIRATORY RATE; Start at 16:00 Hydromorphone HCl (Dilaudid SURVEYOR OIL WELL DIRECTIONAL) MG/HR CONTINUOUS R... Q4PCA IV Last administered on 11/02/16t 18:31; Admin Dose 6 MG; Start 11/02/16 at 18:30 Gabapentin (Neurontin) 200 mg ONCE ONCE PO ; Start 11/04/16 at 09:00; Stop at 09:01 JEM MCCARTNEY MD Nov 03, 2016 21:53
[2016-11-04] MEDS: VANCOMYCIN 1 GM in NS 250 ML IVPB SCH (04:25)
[2016-11-04] MEDS: PANTOPRAZOLE (EC) 40 MG TAB PO SCH (05:02)
[2016-11-04] MEDS: DEXTROSE 5%-LR 1,000 ML IV SCH (05:20)
[2016-11-04 05:22] LABS: ADD SCAN DIFF NO
[2016-11-04 05:28] LABS: BASOPHILS % 0.1 % (0.0-2.0); EOSINOPHILS # 0.2 10^3/ul (0.0-0.5); EOSINOPHILS % 2.3 % (0.0-7.0); HEMATOCRIT 24.7 % (37.0-47.0); HEMOGLOBIN 7.7 g/dl (12.0-16.0); LYMPHOCYTES # 2.1 10^3/ul (0.8-2.9); LYMPHOCYTES % 31.3 % (15.0-51.0); MEAN CORPUSCULAR HEMOGLOBIN 30.4 pg (29.0-33.0); MEAN CORPUSCULAR HGB CONC 31.2 g/dl (32.0-37.0); MEAN CORPUSCULAR VOLUME 97.6 fl (82.0-101.0); MEAN PLATELET VOLUME 9.2 fl (7.4-10.4); MONOCYTE # 0.8 10^3/ul (0.3-0.9); MONOCYTES % 11.9 % (0.0-11.0); NEUTROPHIL # 3.7 10^3/ul (1.6-7.5); PLATELET COUNT 393 10^3/UL (140-415); RED BLOOD COUNT 2.53 10^6/ul (4.20-5.40); RED CELL DISTRIBUTION WIDTH 12.1 % (11.5-14.5); WHITE BLOOD COUNT 6.8 10^3/ul (4.8-10.8)
[2016-11-04] MEDS: DEXAMETHASONE 4 MG/ML 1 ML INJ IV SCH (06:07)
[2016-11-04] MEDS: oxyCODONE 5 MG TAB PO PRN ×3 (06:43→13:22)
[2016-11-04 07:00] VITALS: BP 123/62; RESP 20
--- NOTE | 2016-11-04 07:29 | PN ---
Date/Time of Note Date/Time of Note DATE: 11/04/16 TIME: 07:25 Assessment/Plan VTE Prophylaxis VTE Prophylaxis Intervention: ambulation, SCD's, other (Aspirin 325 mg twice daily) Lines/Catheters IV Catheter Type (from Nrsg): Peripheral IV Guadalupe in Place (from Nrsg): No Assessment/Plan Assessment/Plan -Pain Cocktail Given. Catheter removed and Dermabond applied. -Pain Meds as needed -Dress change performed today -ASA for DVT Prophylaxis x 6 weeks outpatient discussed. -Continue monitoring as outpatient on discharge -Follow-up at scheduled postop outpatient appointment or sooner if there is any issue. -Tegaderm dressings given with specific instructions to use as outpatient to keep wound dry until ashley are moved around 10 days. -Hip precautions discussed -Patient Stable -We will defer to systems architect to determine whether transfusion is needed prior to discharge. -Discharge to Home with home health. Patient prefers [facility]. Subjective 24 Hr Interval Summary 55-year-old female postop day 5 status post right total hip arthroplasty and postop day 3 status post revision of arthroplasty for correction of abnormal limb length. Denies any pain complaints of the right hip. Continues with numbness to the anterior thigh. Patient is up and walking with physical therapy in which she states has improved. Continues with weakness to the flexor status post surgery. Denies any chest pain/tightness. Patient did have small bowel movement yesterday. Patient is ready to go home today. Patient had low red blood cell count and hemoglobin. Patient was seen by systems architect yesterday and given that she is having no symptoms, it was decided by systems architect that transfusion is not necessary at this time. There is continued monitoring going on and patient states that she is feeling fine. Pain Control: well controlled Exam/Review of Systems Vital Signs Vitals Vital Signs Date Time Temp Pulse Resp B/P Pulse Ox O2 Delivery O2 Flow Rate FiO2 11/04/16 01:00 18 11/03/16 19:58 98.9 81 115/74 97 11/01/16 20:08 Nasal Cannula 1.0 Intake and Output 11/03/16 11/03/16 11/04/16 15:00 23:00 07:00 Intake Total 1070 ml 1210 ml Output Total 400 ml Balance 670 ml 1210 ml Exam Free Text/Dictation -Hemovac: Removed -Pain Cocktail Drains: Intact -Incision: Clean, Dry and Intact without any redness or drainage -Thigh soft -4/5 Quadriceps, Tibialis Anterior, EHL Gastrocnemius/Soleus and Peroneals -Normal Sensation -Palpable DP/PT, Capillary Refill <2 secs -No Distal Edema -Negative Arnoldo Sign/No calf pain -Toes Freely Movable Constitutional: alert, oriented, well developed Results Result Diagram: 11/04/16 0426 11/03/16 0447 ALKA HANKS PA-C Nov 04, 2016 07:29
[2016-11-04] MEDS: CELECOXIB 200 MG CAP PO SCH (08:13)
[2016-11-04] MEDS: FERROUS FUMARATE (SR) TAB PO SCH (08:13)
[2016-11-04] MEDS: ASPIRIN (EC) 325 MG TAB PO SCH (08:13)
[2016-11-04] MEDS: DOCUSATE SODIUM 100 MG CAP PO SCH (08:13)
[2016-11-04] MEDS ORDERED: GABAPENTIN 100 MG CAP PO ONE (09:00)
[2016-11-04] MEDS: BISACODYL 10 MG SUPP PR PRN (10:07)
--- NOTE | 2016-11-05 08:20 | DS ---
Date/Time of Note Date/Time of Note DATE: 11/05/16 TIME: 08:14 Discharge Summary Admission/Discharge Info Admit Date/Time Oct 30, 2016 at 05:40 Discharge Date/Time Nov 04, 2016 at 15:30 Final Diagnosis Status post right total hip arthroplasty on 10/30/2016 as well as right total hip revision for abnormal limb length on 11/01/2016. Patient Condition: Stable Hospital Course On the day of admission, the patient underwent right total hip arthroplasty Intraoperative complications: None Postoperative complications: None The patient was given prophylactic antibiotics and anticoagulants. On the day of surgery and first postoperative day patient was started on gait training and was taught usual restrictions following anterior hip precautions. Suction drain removed on the first postoperative day and the dressings were changed. The wound was found to be clean and healing well. There was no sign of infection. Pain cocktail given. There was great concern after postop day 1 as patient had complaints of abnormal limb length. Dr. Mcgarry was contacted and a direct consult was had. Given the abnormal limb length seen on evaluation status post surgery, patient was scheduled for repeat revision surgery with replacement prosthesis for correction of abnormal limb length as the operative hip/lower extremity was longer compared to the left side. On the second postoperative day, patient underwent revision of right total hip arthroplasty for correction of abnormal limb length. Patient tolerated procedure well with no complications. On first postoperative day status post revision, patient was doing well. Denied any pain complaints. Had increased anxiety that dissipated over time. Continued with physical therapy in regards to rising from supine position and being able to walk throughout the hallways using front wheeled walker. On the second postoperative day for revision and a fourth postoperative day for total hip arthroplasty patient continued to do well with no pain complaints. Denies any chest pain/tightness or calf pain. Patient did have difficulty with bowel movement but later in the day she states that she had small bowel movement. On the third postoperative day for revision and fifth postoperative day for total hip arthroplasty patient did have bowel movement. No pain complaints at that time. She was able to rise out of bed and use walker in regards to weightbearing/ambulation. Had some discomfort with weightbearing but patient states was tolerable. Patient was stable and discharged on this day. Patient did have decreased red blood cell count as well as hemoglobin but was seen by leadership development consultant and transfusion was not recommended. Patient was asymptomatic showing no signs of dizziness, shortness of breath or any signs or symptoms of anemia/hemoglobin. Discharge Temperature: 98 Discharge White Blood Cell Count: 6.8 Discharge Hemoglobin: 7.7 The patient was discharged home with home health. Arrangements were made for visiting nurses and home health/physical therapy. Tegaderm with pad also provided for patient. Instructions given on how to use to keep wound dry while showering. Patient may discontinue use of Tegaderm with pad after ashley have been removed around 10 days postoperatively. The patient will be seen in office at scheduled postoperative evaluation date given on their preoperative exam. Should patient complain of any problems prior to scheduled postoperative evaluation date, they may call into outpatient clinic to determine if they need to be scheduled at sooner appointment to be seen immediately if needed. Discharge medications: As per medication reconciliation form Diet: Same as preadmission diet. This is Alka Medina PA-C dictating discharge summary for Dr. Jesse Mcgarry. Home Meds Reported Medications [Flex] No Conflict Check, PO Y for PAIN 10/30/16 Tramadol Hcl* (Ultram*) 50 Mg Tablet, 50 MG PO Q8, TAB 10/30/16 Primary Care Provider ALKA Broderick PA-C Nov 05, 2016 08:20
== END 2016-11-04 15:30 | disposition home health service (06) | DRG 467 ==
LOC: REC 05:40 → MS1 13:54 → UNDODISIN 13:58
PROC: 0SR902A Replacement of Right Hip Joint with Metal on Polyethylene Synthetic Substitute, Uncemented, Open Approach (ICD-10-PCS; principal; 2016-10-30 08:00)
PROC: 0SP909Z Removal of Liner from Right Hip Joint, Open Approach (ICD-10-PCS; 2016-11-01)
PROC: 0SUA09Z Supplement Right Hip Joint, Acetabular Surface with Liner, Open Approach (ICD-10-PCS; 2016-11-01)
PROC: 0SR902A Replacement of Right Hip Joint with Metal on Polyethylene Synthetic Substitute, Uncemented, Open Approach (ICD-10-PCS; 2016-11-01)
PROC: 0SP90JZ Removal of Synthetic Substitute from Right Hip Joint, Open Approach (ICD-10-PCS; 2016-11-01)
DX: M16.11 Unilateral primary osteoarthritis, right hip (principal); T84.89XA Other specified complication of internal orthopedic prosthetic devices, implants and grafts, initial encounter; D64.9 Anemia, unspecified; J45.909 Unspecified asthma, uncomplicated; F12.90 Cannabis use, unspecified, uncomplicated; M21.751 Unequal limb length (acquired), right femur; Z87.891 Personal history of nicotine dependence; Y83.8 Other surgical procedures as the cause of abnormal reaction of the patient, or of later complication, without mention of misadventure at the time of the procedure; Y92.234 Operating room of hospital as the place of occurrence of the external cause
CPT/HCPCS: 73500; 73530; 80053; 81001; 82565; 84520; 85025; 85610; 86850; 86900; 86901; 86920; 87086; 97110; 97116; 97163; 97164; 97166; 97530; C1713; C1776; J0131; J0171; J0690; J0696; J0735; J1100; J1170; J1200; J1644; J1885; J2175; J2250; J2274; J2405; J2710; J2765; J2795; J3010; J3370; J7050; J7120; J7121; J7999

== ENCOUNTER → 2016-11-17 | Outpatient (CLI) | payer OTHER ==
--- NOTE | 2016-11-17 18:22 | HKNOTE ---
DATE OF SERVICE: 11/17/2016 She is now 2 weeks out following a right total hip replacement. She had to have a revision of the h ip surgery on 11/01/2016. The revision operation was on 10/30/2016. At the second surgery, we spent a great deal of effort to ensure that the leg lengths would be equal . Unfortunately, the patient complains that the right leg is still longer than the left. She has minimal pain in her hip. She is able to walk without a walking aid. She has a positive Yuniel ndelenburg gait. The wound is completely healed. All ashley were removed. The patient's temperat ure 98.1. No local sign of infection. Measurements with blocks today indicate the left leg to be short by 3/8 of an inch. Please note that patient has a burning pain in the lateral aspect of the right thigh. The pain come s and goes. It can be quite severe. MANAGEMENT: The patient is being sent for a shoe lift for her left leg. She will continue with her aspirin and her Celebrex. She was given a prescription for a 3/8 inch shoe lift and she will be se en by me again in 10 days' time for reevaluation. Dictated By: CASSIE MERRILL/GALE Conf#: [id number] DID#: [id number]
== END | disposition home or self-care (01) ==
LOC: HKI 14:34
DX: Z47.1 Aftercare following joint replacement surgery (principal); Z96.641 Presence of right artificial hip joint; M21.70 Unequal limb length (acquired), unspecified site; M79.651 Pain in right thigh; Z46.89 Encounter for fitting and adjustment of other specified devices

== ENCOUNTER → 2016-12-08 | Outpatient (CLI) | payer OTHER ==
--- NOTE | 2016-12-08 15:14 | RADRPT ---
PROCEDURE: XR Right hip and pelvis. CLINICAL INDICATION: Right hip pain. Pelvic pain. Postop. TECHNIQUE: Three views. Frontal pelvis. Frontal and lateral right hip. COMPARISON: 09/22/2014. 11/01/2016. FINDINGS: There is no fracture or dislocation. The soft tissues are normal. There is a right hip total arthroplasty which appears satisfactory. There are degenerative changes of the left hip with joint space narrowing and osteophytes. There is no lytic or blastic lesion. The upper pelvis is not completely included on the image. IMPRESSION: 1. Satisfactory postoperative appearance of the right hip. 2. Moderate degenerative changes of the left hip. RPTAT: QQ .Ector Clay MD, Date Time Electronically viewed and signed by .Ector Clay MD, on 12/08/2016 15:14 .R/
--- NOTE | 2016-12-24 10:25 | HKNOTE ---
DATE OF SERVICE: 12/08/2016 Patient is now 5 weeks out following right hip replacement. Note that after surgery her leg was too long and she had to be taken back the following day for surgical adjustments to equalize the leg lengths. Patient has a degree of pelvic tilt which aggravated the leg length noted postoperatively. She obviously still has the pelvic tilt. She is very pleased with the result of the surgery. A CAT scanogram of her legs was obtained on 12/02/2016. Dr. Mcclure reports the left lower extremity length is 76.5 cm. The right leg has 77.9 cm (slightly over a centimeter long). PHYSICAL EXAMINATION: VITAL SIGNS: Blood pressure 103/70, temperature of 98.4. GAIT: Patient walks without a walking aid. She has a complex gait pattern reflective of the pelvic tilt, weakness of the rectus femoris muscle in postoperative recovery. HIPS: She walks without a walking aid. complete the hip, no sign of infection or inflammation. Examination of the pelvis and hips indicate that the pelvis is tilted so that the right leg has an apparent leg length, in addition to the 1 cm of actual leg length (functional pelvic obliquity). IMAGING: Plain x-rays of the pelvis and hips obtained today show that the right hip implants are well placed and well sized. No lucencies between the implant parts and bone. Pelvic obliquity is again noted on the x-ray. MANAGEMENT: Patient will continue the usual restrictions for a hip replacement. She should continue taking aspirin, Neurontin. Pain medication as needed. Also, I further recommend that patient have physical therapy adjustments for functional pelvic obliquity. There are very few physical therapists who are trained or experienced in this technique. Unfortunately, the only one that I know is, is out of network, and I therefore, recommend that patient be allowed to see her out of network. The name of the physical therapist is ANDREA Julien. Return visit, 4 weeks. Dictated By: Jesse Mcgarry MD /nelli/rell /Document#: [id number]
== END | disposition home or self-care (01) ==
LOC: HKI 13:50
DX: Z47.1 Aftercare following joint replacement surgery (principal); Z96.641 Presence of right artificial hip joint; R26.9 Unspecified abnormalities of gait and mobility
CPT/HCPCS: 73502

== ENCOUNTER → 2017-01-28 | Outpatient (CLI) | payer OTHER ==
--- NOTE | 2017-01-28 15:44 | PN ---
Date/Time of Note Date/Time of Note DATE: 01/28/17 TIME: 15:33 Outpatient Progress Note Chief Complaint Requesting additional physical therapy HPI 56-year-old female status post right total hip arthroplasty via anterior route on 10/30/2016 followed by replacement polyethylene liner for abnormal limb correction on 11/01/2016 presents today for repeat evaluation. Patient denies any pain to the hip. Patient continues with discrepancy in limb length in regards to her weightbearing and walking. She has been compliant performing daily at home physical therapy. Patient is also been performing outpatient physical therapy and has noted an improvement in her function but continues with numbness sensation to the medial quadriceps tendon region as well as iliotibial band. She also has weakness to the medial quadriceps tendon region. Her flexion has improved but continues to experience some difficulty. Patient would like additional physical therapy for further correction of weightbearing/ambulation and returning to her normal daily activities. Review of Systems Const: No Fever, no chills, no Fatigue, normal appetite, no diaphoresis. Resp: No SOB, no wheezing, no chest pain. CV: No chest pain, no palpitaions, no WAGNER. Physical Exam Blood pressure is 110/71, temperature is 98, pulse is 77, respiratory rate is 12, height is 5 foot 3 inches, weight is 147 pounds General Appearance: well-developed, well-nourished, in no acute distress. Right hip: Gait is abnormal but nonantalgic. Limb length is shortened on the left side compared to the right. While placing limb adjustment sheets on the floor there is about 1/4 inch limb length abnormality with the left lower extremity being shorter than the right. This is an improvement however from previous examination as there was a 3/8 limb length abnormality. Patient is able to flex the hip up to 70 while standing. While lying down patient is able to perform a straight leg raise up to 45. 4+/5 strength on resistance with flexion while lying supine and 5/5 strength on resistance with extension. 5/5 strength with abduction and adduction and patient is able to externally rotate up to 20 and internally rotate up to 5-10. Decreased sensory exam to the iliotibial band on the right side. Toes freely movable. 2+ pedal pulses. Patient does not need any assisted ambulatory device and walks independently. Allergies Coded Allergies: metronidazole (Unverified Adverse Reaction, Intermediate, NAUSEA & VOMITING, 6/2/17) Assessment/Plan Problems: (1) Status post right hip replacement * At this time patient does continue to improve. I am recommending additional physical therapy to the right hip for improved functionality and return to daily activities. Patient does continue with presentation of abnormal limb length while walking without pain. She is continuing with weakness primarily to the quadriceps tendon region along the medial side. Patient is very compliant in regards to attending outpatient physical therapy and performing daily physical therapy at home. Patient, prior to osteoarthritic hip lead a very active lifestyle and would like to return to her active lifestyle. Patient does continue with weakness to the quadriceps tendon as well as with flexion at the operative hip.Additional physical therapy is believed that she will significantly benefit in regards to returning to normal functionality as well as improvement in her off-balance gait. * Follow-up At 6 months status post surgery. Medications Home Meds Reported Medications [Flex] No Conflict Check, PO Y for PAIN 10/30/16 Tramadol Hcl* (Ultram*) 50 Mg Tablet, 50 MG PO Q8, TAB 10/30/16 ALKA HANKS PA-C Jan 28, 2017 15:44
== END | disposition home or self-care (01) ==
LOC: HKI 14:56
DX: R20.0 Anesthesia of skin (principal); R53.1 Weakness; Z96.641 Presence of right artificial hip joint

== ENCOUNTER → 2017-02-25 | Outpatient (CLI) | payer OTHER ==
--- NOTE | 2017-02-25 22:08 | HKNOTE ---
DATE OF SERVICE: 02/25/2017 Patient comes in for a recheck on her right hip. Patient states at the outset that she feels, "I am not being listened to." It was difficult for me to get from her exactly what she felt she was not being listened to about. I have spent considerable time with her each time she has come in postoperatively. She says she is "very pleased with the hip replacement." Her issues are that the leg is still weak and that her physical therapist has told her that although the leg lengths are mechanically equal in length, there is a functional leg length difference. (She is not able to tell me which leg is functionally longer than the other). She is also not able to tell me how the functional leg length difference is impacting on her walking and comfort. She indicates that her main problem continues to be weakness in the muscles of the right thigh. The physical therapist, Nisha Mancera, sent a report on 02/08/2017, indicating that the muscles of the right hip were quite markedly weak, including hip abduction 3/5, hip adduction 3/5, hip internal rotation 3/5, and external rotation, 3/5. However, hip extension is 4/5. Hip flexion is 3/5. Patient complains of numbness over the anterior aspect of the right thigh and indeed, there does seem to be some decrease in sensation over the anterior aspect of the right thigh from the groin to the knee. In addition to the weakness, she complains of muscle pain, "which keeps me awake at night." The pain at night is far worse than during the day. She has been taking temazepam for sleep, but generally she takes it at about 2 a.m. or so when it becomes clear that she is not going to be able to sleep without medication. She gets start-up pain after sitting for more than 15 minutes. The start-up pain lasts for 30 steps or so. She states she is "never completely free of discomfort or pain." She takes gabapentin 100 mg twice a day. She takes tramadol 50 mg once or twice a day (mostly once). She also has a variety of topical medications which she rubs onto the thigh. Her particular favorite includes cannabis (CBD), which also contains NSAIDs. Her third main problem is "functional leg length difference." Patient is not able to tell me how this leg length difference affects her life. She notes that she does have a gait that is not completely normal, (which is easily explainable by the weak muscles). We once again went over the CAT scan that was obtained after she left the hospital, which showed that there was very minimal difference between the 2 leg lengths. Patient insisted that the CAT scan had been performed by imaging only 1 leg. I called Dr. Gross. Dr. Gross indicated that both legs were imaged in order to get an accurate leg length reading. He also indicated that the right leg/hip was independently imaged in order to get an axial image of the right hip. He also notes that the total difference between the 2 legs measured by CAT scan was negligible. Patient indicates that the physical therapy helps both the leg length and the weakness. We spent time discussing her medications. She stopped taking the Celebrex on her own for reasons she cannot explain (which probably accounts for why she is having more pain). She feels that the gabapentin "may be harmful." She was given reassurance that on the dosages that we are using, they will not be harmful to her. MANAGEMENT: I sat with her for at least a half an hour trying to get through to [facility] to get them to authorize more physical therapy with her therapist. This entailed calls to the therapist, as well as to [facility]. I spoke to Nisha Mancera, who gave me the CPT codes for the physical therapy treatments that are needed, and she indicates that about 15 more sessions would be needed, 2 units for each session, and [place] sessions [place] 47174, 85500, and 47200. Patient was given a prescription for further physical therapy. Note that she is changing to [employer] insurance tomorrow, and tomorrow is her last day of [facility]. She will be seen by me again in a month's time for re-evaluation. She was given a prescription for Celebrex, gabapentin, and more temazepam. Dictated By: Jesse Mcgarry MD /nelli/caryn /Document#: [id number]
== END | disposition home or self-care (01) ==
LOC: HKI 09:11
DX: M79.1 Myalgia (principal); Z09 Encounter for follow-up examination after completed treatment for conditions other than malignant neoplasm; Z96.641 Presence of right artificial hip joint
CPT/HCPCS: G0463

== ENCOUNTER → 2017-03-30 | Outpatient (CLI) | payer OTHER ==
--- NOTE | 2017-03-30 11:00 | RADRPT ---
PROCEDURE: XR Lumbar Spine. CLINICAL INDICATION: Back pain. TECHNIQUE: Three views. AP, lateral and cone-down lateral view of the lumbar spine were obtained. COMPARISON: No prior studies are available for comparison. FINDINGS: There is mild scoliosis convex right measuring 6 degrees between T12 and L5. Alignment is otherwise normal. There is no fracture. There is no lytic or blastic lesion. There are degenerative changes with osteophytes throughout. There is hypertrophy of the facet joints at L3-4, L4-5, and L5-S1. There is a right hip total arthroplasty. IMPRESSION: 1. Mild scoliosis convex right. 2. Degenerative changes. 3. Right hip arthroplasty. 4. Otherwise unremarkable images of the lumbar spine. RPTAT: QQ .Ector Clay MD, Date Time Electronically viewed and signed by .Ector Clay MD, on 03/30/2017 10:59 .R/
--- NOTE | 2017-03-31 04:23 | HKNOTE ---
DATE OF SERVICE: 03/30/2017 Patient comes in for reevaluation of her symptoms related to her right hip. She continues to have a small area of numbness over the anterior aspect of the thigh, but she states that "lately the pains have changed." She states that she is getting tingling and pinching sensati ons in the area where she previously just had numbness. She was advised that this might be a sign o f healing of the . She notes that at her previous visits, she did not fully accept the leg length measurements by the r adiologist, which she thought that at no time were both hips x-rayed for the CAT scan. I contacted her radiologist and discussed with him, Dr. Mcclure, after her last visit, and we had a 3-way conference concerning her CAT scan, which she insisted could not be accurate because one hi p was "not in the beam of the x-ray." Dr. Mcclure sent over a DVD of her CAT scan so that I coul d show her that both hips and knees were clearly within the image. That was gone over with her today. I believe we finally got her to believe and understand that the CAT scan was performed correctly. She continues to complain that the left leg is shorter than the right. On examining her today, it i s clear that one shoulder is lower than the other. An x-ray of the lumbar spine was obtained today which shows that she has scoliosis of the thoracolum bar spine and pelvic obliquity, which quite clearly explains her leg length discrepancy with the rig ht leg feeling longer than the left leg. Using wooden blocks, it was determined that 1/4 inch shoe lift should even her up. She was given a prescription to get the shoe lift. She is currently taking her Celebrex and gabapentin, and she will be seen again in 4 weeks' time for reevaluation. Dictated By: CASSIE MERRILL/GALE Conf#: [id number] DID#: [id number]
== END | disposition home or self-care (01) ==
LOC: HKI 09:26
DX: M25.551 Pain in right hip (principal); R20.2 Paresthesia of skin; M41.9 Scoliosis, unspecified
CPT/HCPCS: 72100; G0463